=== PATIENT | male | born 1965 ===

== ENCOUNTER 2018-03-04 06:49 | Inpatient (IN) | payer OTHER ==
[2018-03-04] MEDS ORDERED: Amiodarone 150mg/3 ml vial ONE (07:06)
[2018-03-04] MEDS ORDERED: Midazolam 2 MG/2 ML VIAL ONE (07:20)
[2018-03-04] MEDS ORDERED: Sodium Chloride 0.9% 1,000 ML IV ONE ×2 (07:30→09:14)
[2018-03-04] MEDS ORDERED: Midazolam 2 MG/2 ML VIAL IV STA (07:32)
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
[2018-03-04 07:45] LABS: BASO # 0.1 K/uL (0.0-0.2); BASO % 0.7 % (0.0-2.0); EOS # 0.1 K/uL (0.0-0.7); EOS % 1.3 % (0.0-4.0); HEMOGLOBIN 14.2 g/dL (12.0-18.0); LYMPH # 2.5 K/uL (1.0-4.3); LYMPH % 31.8 % (20.0-40.0); MEAN CORPUSCULAR HEMOGLOBIN 27.6 pg (27.0-31.0); MEAN CORPUSCULAR HGB CONC 33.2 g/dL (33.0-37.0); MEAN PLATELET VOLUME 8.1 fL (7.2-11.7); MONO # 0.9 K/uL (0.0-0.8); MONO % 11.8 % (0.0-10.0); NEUT # 4.3 K/uL (1.8-7.0); NEUT % 54.4 % (50.0-75.0); NRBC % 0.1 % (0.0-2.0); RBC 5.14 Mil/uL (4.40-5.90); WHITE BLOOD COUNT 7.9 K/uL (4.8-10.8)
[2018-03-04] MEDS: Heparin25000 units/250ml 1/2NS 25,000 UNITS/250 ML BAG IV STA ×2 (08:13→08:55)
[2018-03-04] MEDS: Heparin25000 units/250ml 1/2NS 25,000 UNITS/250 ML BAG IV PRN ×2 (08:13→08:45)
[2018-03-04] MEDS ORDERED: Dextrose 50% SYRINGE Inj (50 ml) IVP STA (08:24)
[2018-03-04] MEDS ORDERED: Dextrose 5%/0.9% NS 1,000 ML IV ONE (08:24)
[2018-03-04 08:30] LABS: INR 1.1; PROTHROMBIN TIME 11.5 SECONDS (9.7-12.2)
[2018-03-04 08:37] LABS: B-TYPE NATRIURETIC PEPTIDE 405 pg/mL (0-900); CK-MB 3.09 ng/mL (0.0-3.38)
[2018-03-04 08:38] LABS: ALB/GLOB RATIO 1.3 (1.0-2.1); ALBUMIN 4.8 g/dL (3.5-5.0); ALT/SGPT 37 U/L (21-72); AST/SGOT 53 U/L (17-59); BLOOD UREA NITROGEN 13 mg/dL (9-20); CALCIUM 9.4 mg/dl (8.6-10.4); GFR NON-AFRICAN AMERICAN > 60
[2018-03-04] MEDS ORDERED: Heparin25000 units/250ml 1/2NS 25,000 UNITS/250 ML BAG IV SCH (09:00)
[2018-03-04] MEDS ORDERED: Sodium Chloride 0.9% 2,000 ML ONE (09:18)
[2018-03-04 09:31] LABS: SQUAMOUS EPITHIAL < 1 /hpf (0-5); URINE BILIRUBIN NEGATIVE (NEGATIVE); URINE BLOOD NEGATIVE (NEGATIVE); URINE CLARITY Clear (Clear); URINE COLOR Yellow (YELLOW); URINE GLUCOSE (UA) NORMAL (Normal); URINE LEUKOCYTE ESTERASE NEG Leu/uL (Negative); URINE PROTEIN NEGATIVE (NEGATIVE); URINE UROBILINOGEN NORMAL mg/dL (0.2-1.0)
[2018-03-04 09:53] LABS: BARBITURATES, UR NEGATIVE (NEGATIVE); OPIATES, UR NEGATIVE (NEGATIVE); PHENCYCLIDINE, UR NEGATIVE (NEGATIVE)
--- NOTE | 2018-03-04 10:23 | RAD ---
HISTORY: CP COMPARISON: None available. TECHNIQUE: Chest, one view. FINDINGS: LUNGS: Defibrillator pad projects over the left hemithorax precluding adequate evaluation of the underlying parenchyma. No focal consolidation identified. Please note that chest x-ray has limited sensitivity for the detection of pulmonary masses. PLEURA: No significant pleural effusion identified. No definite pneumothorax . CARDIOVASCULAR: Cardiomegaly. No significant atherosclerotic calcification present. OSSEOUS STRUCTURES: Degenerative changes. VISUALIZED UPPER ABDOMEN: Unremarkable. OTHER FINDINGS: None. IMPRESSION: Cardiomegaly. Defibrillator pad projects over the left hemithorax precluding adequate evaluation of the underlying parenchyma. No focal consolidation identified.
[2018-03-04 10:26] LABS: BENZODIAZEPINES, UR POSITIVE (NEGATIVE)
--- NOTE | 2018-03-04 11:00 | CP.PCM.PN ---
Subjective - Date & Time of Evaluation Date of Evaluation: 03/04/18 Time of Evaluation: 10:45 - Subjective Subjective: H&P dictated #[id number] Objective - Vital Signs/Intake and Output Vital Signs (last 24 hours): Temp Pulse Resp BP Pulse Ox 97.5 F L 75 19 104/66 98 03/04/18 10:14 03/04/18 10:20 03/04/18 10:20 03/04/18 10:14 03/04/18 10:20 Intake and Output: 03/04/18 03/04/18 06:59 18:59 Intake Total 43.8 Balance 43.8 - Medications Medications: Current Medications Aspirin (Aspirin Chewable) 81 mg PO DAILY ELIZABETH Amiodarone HCl 900 mg/ (Dextrose) 500 mls @ 33.33 mls/hr IV .Q15H1M ONE; Protocol Stop: 03/04/18 23:00 Last Admin: 03/04/18 08:14 Dose: 33.33 mls/hr Heparin Sodium/Sodium Chloride (Heparin 03856 Units/250ml 1/2 Normal Saline) 25,000 units in 250 mls @ 8.981 mls/hr IV .Q24H PRN; Protocol Last Admin: 03/04/18 08:45 Dose: 10.5 mls/hr - Labs Labs: 03/04/18 07:40 03/04/18 07:40 PT 11.5 SECONDS (9.7-12.2) 03/04/18 07:40 INR 1.1 03/04/18 07:40 APTT 35 SECONDS (21-34) H 03/04/18 07:40
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
[2018-03-04] MEDS: guaiFENesin-Codeine 100-10mg/5ml Syrup (10ml) UD PO PRN (22:19)
[2018-03-04] MEDS ORDERED: Ipratropium 0.02% Inhal Soln (0.5 mg/2.5 ml) UD IH STA (22:59)
[2018-03-04] MEDS ORDERED: Promethazine 6.25 MG/5 ML CUP PO ONE (23:15)
[2018-03-04] MEDS ORDERED: Potassium Chloride 20 mEq/15 ml LIQ UD PO ONE (23:21)
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
[2018-03-05 06:17] LABS: BASO # 0.1 K/uL (0.0-0.2); BASO % 0.7 % (0.0-2.0); EOS # 0.1 K/uL (0.0-0.7); EOS % 0.9 % (0.0-4.0); HEMOGLOBIN 14.2 g/dL (12.0-18.0); LYMPH # 1.6 K/uL (1.0-4.3); LYMPH % 19.9 % (20.0-40.0); MEAN CELL VOLUME 83.1 fL (80.0-94.0); MEAN CORPUSCULAR HEMOGLOBIN 27.8 pg (27.0-31.0); MEAN CORPUSCULAR HGB CONC 33.4 g/dL (33.0-37.0); MEAN PLATELET VOLUME 8.8 fL (7.2-11.7); MONO # 0.6 K/uL (0.0-0.8); MONO % 8.1 % (0.0-10.0); NEUT # 5.6 K/uL (1.8-7.0); NEUT % 70.4 % (50.0-75.0); RBC 5.09 Mil/uL (4.40-5.90); RED CELL DISTRIBUTION WIDTH 14.7 % (11.5-14.5)
[2018-03-05] MEDS: Heparin25000 units/250ml 1/2NS 25,000 UNITS/250 ML BAG IV PRN (06:34)
[2018-03-05 06:35] LABS: LDL CHOLESTEROL 114 mg/dL (0-129)
[2018-03-05 06:36] LABS: ALB/GLOB RATIO 1.3 (1.0-2.1); ALBUMIN 4.5 g/dL (3.5-5.0); ALT/SGPT 46 U/L (21-72); AST/SGOT 43 U/L (17-59); BLOOD UREA NITROGEN 12 mg/dL (9-20); CALCIUM 8.9 mg/dl (8.6-10.4); GFR NON-AFRICAN AMERICAN > 60; HDL CHOLESTEROL 62 mg/dL (30-70)
--- NOTE | 2018-03-05 08:28 | RAD ---
Chest x-ray single frontal view HISTORY: Congestive heart failure. COMPARISON: 03/04/2018 Findings: Prominent diffuse increased interstitial lung markings suggestive for a moderate venous congestion. Patchy consolidative changes in the left mid to lower lung zone. Biapical pleural thickening with upper lobe granulomatous changes. Cardiomegaly. Enlarged ectatic aorta. Degenerative changes in the spine and shoulders. Impression: Prominent diffuse increased interstitial lung markings suggestive for a moderate venous congestion. Patchy consolidative changes in the left mid to lower lung zone. Biapical pleural thickening with upper lobe granulomatous changes. Cardiomegaly. Enlarged ectatic aorta.
--- NOTE | 2018-03-05 08:31 | RAD ---
Chest x-ray single frontal view HISTORY: Congestive heart failure. COMPARISON: 03/04/2018 Findings: Moderate venous congestion. Right hilar prominence. Patchy increased markings at the left lung base. Cardiomegaly. Additional consolidative changes in the medial aspect of the left upper lung zone. Degenerative changes in the spine and shoulders. Impression: Moderate venous congestion. Right hilar prominence. Patchy increased markings at the left lung base. Cardiomegaly. Additional consolidative changes in the medial aspect of the left upper lung zone. Degenerative changes in the spine and shoulders.
--- NOTE | 2018-03-05 09:44 | CP.PCM.PN ---
Subjective - Date & Time of Evaluation Date of Evaluation: 03/05/18 Time of Evaluation: 09:44 - Subjective Subjective: Progress note dictated #[id number] Objective - Vital Signs/Intake and Output Vital Signs (last 24 hours): Temp Pulse Resp BP Pulse Ox 98.4 F 71 17 114/66 98 03/05/18 08:00 03/05/18 08:03 03/05/18 08:03 03/05/18 08:03 03/05/18 08:03 Intake and Output: 03/05/18 03/05/18 06:59 18:59 Intake Total 693.0 54.4 Output Total 2650 Balance -1957.0 54.4 - Medications Medications: Current Medications Amiodarone HCl (Cordarone) 100 mg PO BID [facility] Aspirin (Aspirin Chewable) 81 mg PO DAILY [facility] Last Admin: 03/04/18 11:38 Dose: 81 mg Furosemide (Lasix) 20 mg PO DAILY [facility] Guaifenesin/Codeine Phosphate (Guaifenesin/Codeine) 5 ml PO Q6H PRN PRN Reason: Cough and congestion Last Admin: 03/04/18 22:19 Dose: 5 ml Heparin Sodium/Sodium Chloride (Heparin 36863 Units/250ml 1/2 Normal Saline) 25,000 units in 250 mls @ 8.981 mls/hr IV .Q24H [facility]; Protocol Last Admin: 03/05/18 06:34 Dose: 14 units/kg/hr, 10.478 mls/hr Influenza Virus Vaccine (Flucelvax Quad [id number] Syr) 60 mcg IM .ONCE ONE Stop: 03/06/18 10:01 Losartan Potassium (Cozaar) 25 mg PO DAILY [facility] Pantoprazole Sodium (Protonix Inj) 40 mg IVP DAILY [facility] Rosuvastatin Calcium (Crestor) 10 mg PO HS [facility] - Labs Labs: 03/05/18 06:07 03/05/18 06:07 PT 11.5 SECONDS (9.7-12.2) 03/04/18 07:40 INR 1.1 03/04/18 07:40 APTT 76 SECONDS (21-34) H 03/05/18 06:07
--- NOTE | 2018-03-05 10:19 | CARD ---
APPROVED REPORT Date of service: 03/04/2018 EXAM: Two-dimensional and M-mode echocardiogram with Doppler and color Doppler. INDICATION Dizziness and Vertigo Dyspnea Chest pressure Palpitations 2D DIMENSIONS IVSd0.8 (0.7-1.1cm)Aortic Root (2D)2.7 (2.0-3.7cm) LVDd8.0 (3.9-5.9cm)PWd0.7 (0.7-1.1cm) LA Egcuqi35 (18-58mL)LVDs7.0 (2.5-4.0cm) FS (%) 12.5 %LVEF (%)25.8 (>50%) LVEF (Knutson's)35.12 %IVC0.00 cm M-Mode DIMENSIONS Left Atrium (MM)4.03 (2.5-4.0cm)IVSd0.56 (0.7-1.1cm) Aortic Root3.23 (2.2-3.7cm)LVDd8.05 (4.0-5.6cm) Aortic Cusp Exc.1.56 (1.5-2.0cm)PWd0.80 (0.7-1.1cm) FS (%) 17 %LVDs6.70 (2.0-3.8cm) TAPSE14.01 cmLVEF (%)34 (>50%) Mitral Valve MV E Wtfcbuop437.8cm/sMV A Srgiggkf17.1cm/sE/A ratio2.0 TDI Lateral E' Peak V3.33cm/sMedial E' Peak V4.62cm/sE/Lateral E'31.5 E/Medial E'22.7 Tricuspid Valve TR Peak Bsvqgrwv058wn/sTR Peak Gr.[id number] LEFT VENTRICLE The Left Ventricle is severely dilated. There is normal left ventricular wall thickness. Left ventricle systolic function is severely impaired. The Ejection Fraction is 15-20%. There is normal LV segmental wall motion. The left ventricular diastolic function is normal. No obvious left ventricle thrombus noted on this study. RIGHT VENTRICLE The right ventricle is normal size. There is normal right ventricular wall thickness. Systolic function is severely reduced. ATRIA The left atrium is mildly dilated. The right atrium size is normal. The interatrial septum is intact with no evidence for an atrial septal defect. AORTIC VALVE The aortic valve is normal in structure. No aortic regurgitation is present. There is no aortic valvular stenosis. MITRAL VALVE The mitral valve is normal in structure. There is no evidence of mitral valve prolapse. There is no mitral valve stenosis. Mitral regurgitation is moderate. TRICUSPID VALVE The tricuspid valve is normal in structure. There is mild tricuspid regurgitation. Right ventricular systolic pressure is estimated at less than 30 mmHg. There is no pulmonary hypertension. PULMONIC VALVE The pulmonic valve is not well visualized. There is mild pulmonic valvular regurgitation. GREAT VESSELS The aortic root is normal in size. PERICARDIAL EFFUSION There is no significant pericardial effusion. <Conclusion> Left ventricle systolic function is severely impaired. The Ejection Fraction is 15-20%. No aortic regurgitation is present. Mitral regurgitation is moderate. There is mild tricuspid regurgitation. There is no pulmonary hypertension. There is mild pulmonic valvular regurgitation.
[2018-03-05] MEDS: Pantoprazole 40 mg EC Tab PO SCH (11:05)
[2018-03-05] MEDS: guaiFENesin-Codeine 100-10mg/5ml Syrup (10ml) UD PO PRN (11:07)
--- NOTE | 2018-03-05 12:18 | CP.CCUPN ---
CCU Subjective - Physician Review Events Since Last Encounter (Free Text): 03/05/18 14:46 patient had some SOB this morning, but has improved after diuretic administration. CCU Objective - Vital Signs / Intake & Output Vital Signs (Last 4 hours): Vital Signs Pulse Resp BP Pulse Ox 03/05/18 11:58 98/69 L 03/05/18 11:03 56 L 24 98/69 L 03/05/18 11:00 54 L 24 100 03/05/18 10:03 69 29 H 115/68 96 03/05/18 10:00 74 32 H 98 03/05/18 09:03 75 16 111/64 97 03/05/18 09:00 68 29 H 98 Intake and Output (Last 8hrs): Intake & Output 03/04/18 03/05/18 03/05/18 22:59 06:59 14:59 Intake Total 500.6 367.6 96.4 Output Total 650 2300 Balance -149.4 -1932.4 96.4 Weight 171 lb 1.259 oz 171 lb Intake: Intake, IV Amount 300.6 217.6 96.4 Left Forearm 216.6 133.6 33.4 Right Antecubital 84.0 84.0 63.0 Oral 200 150 Output: Urine 650 2300 Urine, Voided 650 2300 - Physical Exam Head: Positive for: Atraumatic, Normocephalic Pupils: Positive for: PERRL Extroacular Muscles: Positive for: EOMI Conjunctiva: Positive for: Normal Ears: Positive for: Normal Mouth: Positive for: Moist Mucous Membranes Respiratory/Chest: Positive for: Decreased Breath Sounds, Rales Cardiovascular: Positive for: Regular Rate and Rhythm, Normal S1, S2 Abdomen: Positive for: Normal Bowel Sounds. Negative for: Tenderness, Distention Upper Extremity: Positive for: Normal Inspection Lower Extremity: Positive for: Normal Inspection Neurological: Positive for: CN II-XII Intact, Speech Normal Psychiatric: Positive for: Alert, Oriented x 3 - Medications Active Medications: Active Medications Generic Name Dose Route Start Last Admin Trade Name Freq PRN Reason Stop Dose Admin Amiodarone HCl 100 mg 03/05/18 10:00 03/05/18 11:13 Cordarone PO 100 mg BID ELIZABETH Administration Aspirin 81 mg 03/04/18 10:30 03/05/18 11:05 Aspirin Chewable PO 81 mg DAILY ELIZABETH Administration Furosemide 20 mg 03/05/18 10:00 03/05/18 11:58 Lasix PO Not Given DAILY ELIZABETH Guaifenesin/Codeine Phosphate 5 ml 03/04/18 22:12 03/05/18 11:07 Guaifenesin/Codeine PO 5 ml Q6H PRN Administration Cough and congestion Heparin Sodium/Sodium Chloride 25,000 units in 250 mls @ 8.981 mls/hr 03/04/18 09:15 03/05/18 06:34 Heparin 48891 Units/250ml 1/2 Normal Saline IV 14 units/kg/hr .Q24H PRN 10.478 mls/hr Administration Protocol 12 UNITS/KG/HR Influenza Virus Vaccine 60 mcg 03/06/18 10:00 Flucelvax Quad [id number] Syr IM 03/06/18 10:01 .ONCE ONE Losartan Potassium 25 mg 03/05/18 10:00 03/05/18 11:58 Cozaar PO Not Given DAILY ELIZABETH Pantoprazole Sodium 40 mg 03/05/18 10:15 03/05/18 11:05 Protonix Ec Tab PO 40 mg DAILY ELIZABETH Administration Rosuvastatin Calcium 10 mg 03/05/18 22:00 Crestor PO HS ELIZABETH - Patient Studies Lab Studies: Lab Studies 03/05/18 03/05/18 03/05/18 Range/Units 06:07 06:07 06:07 WBC 8.0 (4.8-10.8) K/uL RBC 5.09 (4.40-5.90) Mil/uL Hgb 14.2 (12.0-18.0) g/dL Hct 42.3 (35.0-51.0) % MCV 83.1 (80.0-94.0) fL MCH 27.8 (27.0-31.0) pg MCHC 33.4 (33.0-37.0) g/dL RDW 14.7 H (11.5-14.5) % Plt Count 369 (130-400) K/uL MPV 8.8 (7.2-11.7) fL Neut % (Auto) 70.4 (50.0-75.0) % Lymph % (Auto) 19.9 L (20.0-40.0) % [place] % (Auto) 8.1 (0.0-10.0) % Eos % (Auto) 0.9 (0.0-4.0) % Baso % (Auto) 0.7 (0.0-2.0) % Neut # (Auto) 5.6 (1.8-7.0) K/uL Lymph # (Auto) 1.6 (1.0-4.3) K/uL [place] # (Auto) 0.6 (0.0-0.8) K/uL Eos # (Auto) 0.1 (0.0-0.7) K/uL Baso # (Auto) 0.1 (0.0-0.2) K/uL APTT 76 H (21-34) SECONDS Sodium 134 (132-148) mmol/L Potassium 3.9 (3.6-5.2) mmol/L Chloride 101 (98-107) mmol/L Carbon Dioxide 24 (22-30) mmol/L Anion Gap 13 (10-20) BUN 12 (9-20) mg/dL Creatinine 0.8 (0.8-1.5) mg/dL Est GFR ( Amer) > 60 Est GFR (Non-Af Amer) > 60 Random Glucose 135 H (75-110) mg/dL Calcium 8.9 (8.6-10.4) mg/dl Phosphorus 2.6 (2.5-4.5) mg/dL Magnesium 1.9 (1.6-2.3) mg/dL Total Bilirubin 1.0 (0.2-1.3) mg/dL AST 43 (17-59) U/L ALT 46 (21-72) U/L Alkaline Phosphatase 77 (38-126) U/L Total Creatine Kinase 210 H (55-170) U/L Troponin I (0.00-0.120) ng/mL Total Protein 7.8 (6.3-8.3) g/dL Albumin 4.5 (3.5-5.0) g/dL Globulin 3.3 (2.2-3.9) gm/dL Albumin/Globulin Ratio 1.3 (1.0-2.1) Triglycerides 95 (0-149) mg/dL Cholesterol 177 (0-199) mg/dL LDL Cholesterol Direct 114 (0-129) mg/dL HDL Cholesterol 62 (30-70) mg/dL TSH 3rd Generation 1.13 (0.46-4.68) mIU/L 03/04/18 03/04/18 03/04/18 Range/Units 21:00 19:08 15:05 WBC (4.8-10.8) K/uL RBC (4.40-5.90) Mil/uL Hgb (12.0-18.0) g/dL Hct (35.0-51.0) % MCV (80.0-94.0) fL MCH (27.0-31.0) pg MCHC (33.0-37.0) g/dL RDW (11.5-14.5) % Plt Count (130-400) K/uL MPV (7.2-11.7) fL Neut % (Auto) (50.0-75.0) % Lymph % (Auto) (20.0-40.0) % [place] % (Auto) (0.0-10.0) % Eos % (Auto) (0.0-4.0) % Baso % (Auto) (0.0-2.0) % Neut # (Auto) (1.8-7.0) K/uL Lymph # (Auto) (1.0-4.3) K/uL [place] # (Auto) (0.0-0.8) K/uL Eos # (Auto) (0.0-0.7) K/uL Baso # (Auto) (0.0-0.2) K/uL APTT 79 H D 68 H D (21-34) SECONDS Sodium (132-148) mmol/L Potassium (3.6-5.2) mmol/L Chloride (98-107) mmol/L Carbon Dioxide (22-30) mmol/L Anion Gap (10-20) BUN (9-20) mg/dL Creatinine (0.8-1.5) mg/dL Est GFR ( Amer) Est GFR (Non-Af Amer) Random Glucose (75-110) mg/dL Calcium (8.6-10.4) mg/dl Phosphorus (2.5-4.5) mg/dL Magnesium (1.6-2.3) mg/dL Total Bilirubin (0.2-1.3) mg/dL AST (17-59) U/L ALT (21-72) U/L Alkaline Phosphatase (38-126) U/L Total Creatine Kinase (55-170) U/L Troponin I 0.4950 H* (0.00-0.120) ng/mL Total Protein (6.3-8.3) g/dL Albumin (3.5-5.0) g/dL Globulin (2.2-3.9) gm/dL Albumin/Globulin Ratio (1.0-2.1) Triglycerides (0-149) mg/dL Cholesterol (0-199) mg/dL LDL Cholesterol Direct (0-129) mg/dL HDL Cholesterol (30-70) mg/dL TSH 3rd Generation (0.46-4.68) mIU/L 03/04/18 Range/Units 12:22 WBC (4.8-10.8) K/uL RBC (4.40-5.90) Mil/uL Hgb (12.0-18.0) g/dL Hct (35.0-51.0) % MCV (80.0-94.0) fL MCH (27.0-31.0) pg MCHC (33.0-37.0) g/dL RDW (11.5-14.5) % Plt Count (130-400) K/uL MPV (7.2-11.7) fL Neut % (Auto) (50.0-75.0) % Lymph % (Auto) (20.0-40.0) % [place] % (Auto) (0.0-10.0) % Eos % (Auto) (0.0-4.0) % Baso % (Auto) (0.0-2.0) % Neut # (Auto) (1.8-7.0) K/uL Lymph # (Auto) (1.0-4.3) K/uL [place] # (Auto) (0.0-0.8) K/uL Eos # (Auto) (0.0-0.7) K/uL Baso # (Auto) (0.0-0.2) K/uL APTT (21-34) SECONDS Sodium (132-148) mmol/L Potassium (3.6-5.2) mmol/L Chloride (98-107) mmol/L Carbon Dioxide (22-30) mmol/L Anion Gap (10-20) BUN (9-20) mg/dL Creatinine (0.8-1.5) mg/dL Est GFR ( Amer) Est GFR (Non-Af Amer) Random Glucose (75-110) mg/dL Calcium (8.6-10.4) mg/dl Phosphorus (2.5-4.5) mg/dL Magnesium (1.6-2.3) mg/dL Total Bilirubin (0.2-1.3) mg/dL AST (17-59) U/L ALT (21-72) U/L Alkaline Phosphatase (38-126) U/L Total Creatine Kinase (55-170) U/L Troponin I 0.2050 H* (0.00-0.120) ng/mL Total Protein (6.3-8.3) g/dL Albumin (3.5-5.0) g/dL Globulin (2.2-3.9) gm/dL Albumin/Globulin Ratio (1.0-2.1) Triglycerides (0-149) mg/dL Cholesterol (0-199) mg/dL LDL Cholesterol Direct (0-129) mg/dL HDL Cholesterol (30-70) mg/dL TSH 3rd Generation (0.46-4.68) mIU/L Laboratory Results - last 24 hr 03/04/18 03/04/18 03/04/18 12:22 15:05 19:08 WBC RBC Hgb Hct MCV MCH MCHC RDW Plt Count MPV Neut % (Auto) Lymph % (Auto) [place] % (Auto) Eos % (Auto) Baso % (Auto) Neut # (Auto) Lymph # (Auto) [place] # (Auto) Eos # (Auto) Baso # (Auto) APTT 68 H D Sodium Potassium Chloride Carbon Dioxide Anion Gap BUN Creatinine Est GFR ( Amer) Est GFR (Non-Af Amer) Random Glucose Calcium Phosphorus Magnesium Total Bilirubin AST ALT Alkaline Phosphatase Total Creatine Kinase Troponin I 0.2050 H* 0.4950 H* Total Protein Albumin Globulin Albumin/Globulin Ratio Triglycerides Cholesterol LDL Cholesterol Direct HDL Cholesterol TSH 3rd Generation 03/04/18 03/05/18 03/05/18 21:00 06:07 06:07 WBC 8.0 RBC 5.09 Hgb 14.2 Hct 42.3 MCV 83.1 MCH 27.8 MCHC 33.4 RDW 14.7 H Plt Count 369 MPV 8.8 Neut % (Auto) 70.4 Lymph % (Auto) 19.9 L [place] % (Auto) 8.1 Eos % (Auto) 0.9 Baso % (Auto) 0.7 Neut # (Auto) 5.6 Lymph # (Auto) 1.6 [place] # (Auto) 0.6 Eos # (Auto) 0.1 Baso # (Auto) 0.1 APTT 79 H D Sodium 134 Potassium 3.9 Chloride 101 Carbon Dioxide 24 Anion Gap 13 BUN 12 Creatinine 0.8 Est GFR ( Amer) > 60 Est GFR (Non-Af Amer) > 60 Random Glucose 135 H Calcium 8.9 Phosphorus 2.6 Magnesium 1.9 Total Bilirubin 1.0 AST 43 ALT 46 Alkaline Phosphatase 77 Total Creatine Kinase 210 H Troponin I Total Protein 7.8 Albumin 4.5 Globulin 3.3 Albumin/Globulin Ratio 1.3 Triglycerides 95 Cholesterol 177 LDL Cholesterol Direct 114 HDL Cholesterol 62 TSH 3rd Generation 1.13 03/05/18 06:07 WBC RBC Hgb Hct MCV MCH MCHC RDW Plt Count MPV Neut % (Auto) Lymph % (Auto) [place] % (Auto) Eos % (Auto) Baso % (Auto) Neut # (Auto) Lymph # (Auto) [place] # (Auto) Eos # (Auto) Baso # (Auto) APTT 76 H Sodium Potassium Chloride Carbon Dioxide Anion Gap BUN Creatinine Est GFR ( Amer) Est GFR (Non-Af Amer) Random Glucose Calcium Phosphorus Magnesium Total Bilirubin AST ALT Alkaline Phosphatase Total Creatine Kinase Troponin I Total Protein Albumin Globulin Albumin/Globulin Ratio Triglycerides Cholesterol LDL Cholesterol Direct HDL Cholesterol TSH 3rd Generation Radiology Impressions: Radiology Impressions Chest X-Ray 03/04/18 23:01 Impression: Prominent diffuse increased interstitial lung markings suggestive for a moderate venous congestion. Patchy consolidative changes in the left mid to lower lung zone. Biapical pleural thickening with upper lobe granulomatous changes. Cardiomegaly. Enlarged ectatic aorta. Chest X-Ray 03/04/18 23:18 Impression: Moderate venous congestion. Right hilar prominence. Patchy increased markings at the left lung base. Cardiomegaly. Additional consolidative changes in the medial aspect of the left upper lung zone. Degenerative changes in the spine and shoulders. Critical Care Progress Note - Nutrition Nutrition: Nutrition Category Date Time Status Heart Healthy Diet [DIET] Diets 03/04/18 Dinner Active Assessment/Plan (1) NSTEMI (non-ST elevated myocardial infarction) Assessment and plan: 52 year old male with no significant past medical history p/w Vtach with pulses requiring electrical cardioversion. Neuro: alert and oriented x 3 Pulm: pulmonary edema, from suspected systolic CHF, patient improved after lasix administration. continue po lasix CV: NSTEMI or type 2 strain from sustained Vtach episode, patient was also positive for cocaine, so possible drug induced arrythmia. suspected systolic CHF, echo results pending. Patient has some type of cardiomyopathy with arrythmias. No further episodes of Vtach, now on amiodarone po. metoprolol and RADHA-I. Patient will most likely need AICD placement. Cardiac cath pending for Wednesday. Hem: no acute issues Renal: no acute issues, will monitor urine output. Endo: no acute issues GI: heart healthy diet ID: no acute issues DVT proph - heparin gtt GI proph - protonix turcios for strict I/O's during acute illness Code status - full code Critical Care Time spent 35 minutes Multi-disciplinary rounds were performed with house staff, nursing, speech therapy, respiratory therapy, pharmacy and nutrition with integrated input from the primary team/attending and other consulting services. The documented time is cumulative and includes review of patient data/exams/labs/chart review and examination of the patient on rounds and throughout the day; time is exclusive of any procedures or teaching time. Current Visit: Yes Status: Acute
--- NOTE | 2018-03-05 13:56 | PN ---
DATE: 03/05/2018 SUBJECTIVE: The patient is seen and examined at bedside. No acute overnight events noted. No further arrhythmias noted. The patient denies any headache, dizziness. Denies any chest pain, palpitations. Denies any nausea, vomiting, abdominal pain, diarrhea or constipation. Denies any urinary complaints. All other systems reviewed and were found to be negative. PHYSICAL EXAMINATION: GENERAL: A middle-aged male lying in bed in no acute distress. VITAL SIGNS: Blood pressure 114/66, pulse 82, respirations 71, temperature 98.4 degrees Fahrenheit. O2 saturation 98% on room air. Intake is 1087, output is 2950. HEENT: Pupils equal, round, reacting to light and accommodation. Extraocular muscles intact. No icterus. No pallor. No oral thrush. No pharyngeal congestion. NECK: Supple. No JVD. LUNGS: Bilateral vesicular breath sounds. No wheezing. No rhonchi. CARDIOVASCULAR SYSTEM: S1, S2 present, regular. ABDOMEN: Soft, nontender. Bowel sounds present. No guarding. No rigidity. No rebound tenderness noted. CENTRAL NERVOUS SYSTEM: Alert, awake, oriented x3. No focal deficits noted. EXTREMITIES: No edema. Palpable peripheral pulses noted. MEDICATIONS: Include amiodarone 100 mg p.o. daily, aspirin 81 mg daily, Lasix 20 mg daily, guaifenesin as needed, heparin drip at 8.9 mL an hour, Cozaar 25 mg daily, Protonix 40 mg daily, Crestor 10 mg p.o. at h.s. LABORATORY DATA: The labs done from this morning WBC 8, hemoglobin 14.2, hematocrit 42.6, platelets 369, sodium 134, potassium 3.9, chloride 101, bicarbonate 24, BUN 12, creatinine 0.8, glucose 135, calcium 8.9, phosphorus 2.6, magnesium 1.9, total bilirubin 1, AST 43, ALT 46, alkaline phosphatase 77, CPK is 210, troponin is 0.2050 and 0.4950. Triglycerides 95, cholesterol 177, LDL 114, HDL 62, TSH 1.13. DIAGNOSTIC DATA: Chest x-ray, moderate venous congestion. Echocardiogram shows ejection fraction 15 to 20%. Left ventricular function severely impaired. Mitral regurgitation is noted. ASSESSMENT AND PLAN: A middle-aged male with remote history of cardiac surgery and cardiac catheterization as noted for ventricular tachycardia status post electrical cardioversion converted to normal sinus rhythm, cocaine and cannabinoid abuse, and cardiomyopathy. The patient remains in sinus rhythm. Chest x-ray consistent with congestive heart failure; Lasix and losartan are re-added. Amiodarone changed to p.o. Continue with heparin drip as per Cardiology. EP consult and Cardiology consult appreciated for possible cardiac cath on Wednesday and will follow up with digital analyst regarding ICD and further intervention. Micheline Franco MD
--- NOTE | 2018-03-05 19:10 | CP.PCM.PN ---
Subjective - Date & Time of Evaluation Date of Evaluation: 03/05/18 Time of Evaluation: 19:10 - Subjective Subjective: Patient seen and evaluated Denies chest pain and dyspnea Hx Pneumococcal Vaccination: No Review Of Systems Constitutional: Negative for: Fever, Chills Cardiovascular: Positive for: Chest Pain, Palpitations, Light Headedness Respiratory: Positive for: Shortness of Breath. Negative for: Cough Gastrointestinal: Negative for: Nausea, Vomiting, Abdominal Pain, Diarrhea Neurological: Positive for: Dizziness. Negative for: Weakness, Numbness, Headache Physical Exam - Physical Exam Appears: Well, Non-toxic, In Acute Distress (in moderate distress) Skin: Warm, Dry, Diaphoretic Oral Mucosa: Moist Chest: Other (left chest sugical scars) Cardiovascular: Rhythm Regular (tachycardic ) Respiratory: Normal Breath Sounds, No Rales, No Rhonchi, No Wheezing Gastrointestinal/Abdominal: Normal Exam, Bowel Sounds, Soft, No Tenderness Extremity: Normal ROM, No Pedal Edema, No Calf Tenderness Pulses: Left Dorsalis Pedis: Normal, Right Dorsalis Pedis: Normal Neurological/Psych: Oriented x3 Objective - Vital Signs/Intake and Output Vital Signs (last 24 hours): Temp Pulse Resp BP Pulse Ox 98.1 F 75 32 H 126/89 98 03/05/18 16:00 03/05/18 19:02 03/05/18 19:02 03/05/18 19:03 03/05/18 19:02 Intake and Output: 03/05/18 03/06/18 18:59 06:59 Intake Total 669.9 Output Total 600 Balance 69.9 - Medications Medications: Current Medications Amiodarone HCl (Cordarone) 100 mg PO BID [facility] Last Admin: 03/05/18 18:30 Dose: 100 mg Aspirin (Aspirin Chewable) 81 mg PO DAILY [facility] Last Admin: 03/05/18 11:05 Dose: 81 mg Furosemide (Lasix) 20 mg PO DAILY [facility] Last Admin: 03/05/18 11:58 Dose: Not Given Guaifenesin/Codeine Phosphate (Guaifenesin/Codeine) 5 ml PO Q6H PRN PRN Reason: Cough and congestion Last Admin: 03/05/18 11:07 Dose: 5 ml Heparin Sodium/Sodium Chloride (Heparin 49549 Units/250ml 1/2 Normal Saline) 25,000 units in 250 mls @ 8.981 mls/hr IV .Q24H PRN; Protocol Last Admin: 03/05/18 06:34 Dose: 14 units/kg/hr, 10.478 mls/hr Influenza Virus Vaccine (Flucelvax Quad [id number] Syr) 60 mcg IM .ONCE ONE Stop: 03/06/18 10:01 Losartan Potassium (Cozaar) 25 mg PO DAILY [facility] Last Admin: 03/05/18 11:58 Dose: Not Given Pantoprazole Sodium (Protonix Ec Tab) 40 mg PO DAILY [facility] Last Admin: 03/05/18 11:05 Dose: 40 mg Rosuvastatin Calcium (Crestor) 10 mg PO HS ELIZABETH - Labs Labs: 03/05/18 06:07 03/05/18 06:07 PT 11.5 SECONDS (9.7-12.2) 03/04/18 07:40 INR 1.1 03/04/18 07:40 APTT 76 SECONDS (21-34) H 03/05/18 06:07 Assessment and Plan - Assessment and Plan (Free Text) Assessment: S/P V Tach Non STEMI Isch CMP dilated with EF of 20% Cocaine positive Continue ASA, Heparin, Losartan, Statins Cath Wednesday AICD evaluation
[2018-03-06] MEDS: Heparin25000 units/250ml 1/2NS 25,000 UNITS/250 ML BAG IV PRN (05:24)
[2018-03-06 05:56] LABS: BASO # 0.1 K/uL (0.0-0.2); BASO % 1.2 % (0.0-2.0); EOS # 0.2 K/uL (0.0-0.7); EOS % 3.5 % (0.0-4.0); HEMOGLOBIN 14.2 g/dL (12.0-18.0); LYMPH % 33.4 % (20.0-40.0); MEAN CELL VOLUME 82.8 fL (80.0-94.0); MEAN CORPUSCULAR HEMOGLOBIN 27.1 pg (27.0-31.0); MEAN CORPUSCULAR HGB CONC 32.7 g/dL (33.0-37.0); MEAN PLATELET VOLUME 8.5 fL (7.2-11.7); MONO # 0.7 K/uL (0.0-0.8); MONO % 12.1 % (0.0-10.0); NEUT # 3.1 K/uL (1.8-7.0); NEUT % 49.8 % (50.0-75.0); RBC 5.23 Mil/uL (4.40-5.90); RED CELL DISTRIBUTION WIDTH 14.8 % (11.5-14.5); WHITE BLOOD COUNT 6.1 K/uL (4.8-10.8)
[2018-03-06 06:16] LABS: ALB/GLOB RATIO 1.2 (1.0-2.1); ALT/SGPT 32 U/L (21-72); AST/SGOT 25 U/L (17-59); BLOOD UREA NITROGEN 19 mg/dL (9-20); CALCIUM 8.8 mg/dl (8.6-10.4); GFR NON-AFRICAN AMERICAN > 60
[2018-03-06] MEDS: Pantoprazole 40 mg EC Tab PO SCH (09:51)
[2018-03-06] MEDS ORDERED: Influenza Vaccine 60 mcg/0.5 mL SYR (4YR UP) IM ONE (10:00)
--- NOTE | 2018-03-06 13:20 | CP.PCM.PN ---
Subjective - Date & Time of Evaluation Date of Evaluation: 03/06/18 Time of Evaluation: 13:20 - Subjective Subjective: Progress note dictated #[id number] Objective - Vital Signs/Intake and Output Vital Signs (last 24 hours): Temp Pulse Resp BP Pulse Ox 98.5 F 73 26 H 109/71 94 L 03/06/18 04:00 03/06/18 07:03 03/06/18 07:03 03/06/18 09:51 03/06/18 07:03 Intake and Output: 03/06/18 03/06/18 06:59 18:59 Intake Total 865.5 10.5 Output Total 1100 Balance -234.5 10.5 - Medications Medications: Current Medications Amiodarone HCl (Cordarone) 100 mg PO BID [facility] Last Admin: 03/06/18 09:51 Dose: 100 mg Aspirin (Aspirin Chewable) 81 mg PO DAILY [facility] Last Admin: 03/06/18 09:51 Dose: 81 mg Furosemide (Lasix) 20 mg PO DAILY [facility] Last Admin: 03/06/18 09:51 Dose: 20 mg Guaifenesin/Codeine Phosphate (Guaifenesin/Codeine) 5 ml PO Q6H PRN PRN Reason: Cough and congestion Last Admin: 03/05/18 11:07 Dose: 5 ml Heparin Sodium/Sodium Chloride (Heparin 61662 Units/250ml 1/2 Normal Saline) 25,000 units in 250 mls @ 8.981 mls/hr IV .Q24H PRN; Protocol Last Admin: 03/06/18 05:24 Dose: 14 units/kg/hr, 10.478 mls/hr Losartan Potassium (Cozaar) 25 mg PO DAILY [facility] Last Admin: 03/06/18 09:51 Dose: 25 mg Pantoprazole Sodium (Protonix Ec Tab) 40 mg PO DAILY [facility] Last Admin: 03/06/18 09:51 Dose: 40 mg Rosuvastatin Calcium (Crestor) 10 mg PO HS [facility] Last Admin: 03/05/18 21:27 Dose: 10 mg - Labs Labs: 03/06/18 05:50 03/06/18 05:50 PT 11.5 SECONDS (9.7-12.2) 03/04/18 07:40 INR 1.1 03/04/18 07:40 APTT 59 SECONDS (21-34) H D 03/06/18 05:50
--- NOTE | 2018-03-06 13:39 | RAD ---
Chest x-ray single frontal view HISTORY: Congestive heart failure. Comparison: 03/04/2018 Findings: Mild venous congestion. Right hilar prominence. Punctate nodular density at the right lung apex. Cardiomegaly. Degenerative changes spine and shoulders. Impression: Mild venous congestion. Right hilar prominence. Punctate nodular density at the right lung apex. Cardiomegaly.
--- NOTE | 2018-03-06 14:27 | CP.CCUPN ---
CCU Subjective - Physician Review Events Since Last Encounter (Free Text): 03/06/18 14:22 no complaints. CCU Objective - Vital Signs / Intake & Output Intake and Output (Last 8hrs): Intake & Output 03/05/18 03/06/18 03/06/18 22:59 06:59 14:59 Intake Total 884.0 534.0 10.5 Output Total 800 900 Balance 84.0 -366.0 10.5 Weight 168 lb 11.84 oz Intake: IV 250 Intake, IV Amount 84.0 84.0 10.5 Right Antecubital 84.0 84.0 10.5 Oral 800 200 Output: Urine 800 900 Urine, Voided 800 900 Other: # Bowel Movements 1 - Physical Exam Head: Positive for: Atraumatic, Normocephalic Pupils: Positive for: PERRL Extroacular Muscles: Positive for: EOMI Conjunctiva: Positive for: Normal Ears: Positive for: Normal Mouth: Positive for: Moist Mucous Membranes Respiratory/Chest: Positive for: Decreased Breath Sounds, Rales Cardiovascular: Positive for: Regular Rate and Rhythm, Normal S1, S2 Abdomen: Positive for: Normal Bowel Sounds. Negative for: Tenderness, Distention Upper Extremity: Positive for: Normal Inspection Lower Extremity: Positive for: Normal Inspection Neurological: Positive for: CN II-XII Intact, Speech Normal Psychiatric: Positive for: Alert, Oriented x 3 - Medications Active Medications: Active Medications Generic Name Dose Route Start Last Admin Trade Name Freq PRN Reason Stop Dose Admin Amiodarone HCl 100 mg 03/05/18 10:00 03/06/18 09:51 Cordarone PO 100 mg BID ELIZABETH Administration Aspirin 81 mg 03/04/18 10:30 03/06/18 09:51 Aspirin Chewable PO 81 mg DAILY ELIZABETH Administration Furosemide 20 mg 03/05/18 10:00 03/06/18 09:51 Lasix PO 20 mg DAILY ELIZABETH Administration Guaifenesin/Codeine Phosphate 5 ml 03/04/18 22:12 03/05/18 11:07 Guaifenesin/Codeine PO 5 ml Q6H PRN Administration Cough and congestion Heparin Sodium/Sodium Chloride 25,000 units in 250 mls @ 8.981 mls/hr 03/04/18 09:15 03/06/18 05:24 Heparin 39169 Units/250ml 1/2 Normal Saline IV 14 units/kg/hr .Q24H PRN 10.478 mls/hr Administration Protocol 12 UNITS/KG/HR Losartan Potassium 25 mg 03/05/18 10:00 03/06/18 09:51 Cozaar PO 25 mg DAILY ELIZABETH Administration Pantoprazole Sodium 40 mg 03/05/18 10:15 03/06/18 09:51 Protonix Ec Tab PO 40 mg DAILY ELIZABETH Administration Rosuvastatin Calcium 10 mg 03/05/18 22:00 03/05/18 21:27 Crestor PO 10 mg HS ELIZABETH Administration - Patient Studies Lab Studies: Microbiology Studies 03/04/18 11:43 MRSA Culture (Admit) - Final Nose MRSA NOT DETECTED Lab Studies 03/06/18 03/06/18 03/06/18 Range/Units 05:50 05:50 05:50 WBC 6.1 (4.8-10.8) K/uL RBC 5.23 (4.40-5.90) Mil/uL Hgb 14.2 (12.0-18.0) g/dL Hct 43.3 (35.0-51.0) % MCV 82.8 (80.0-94.0) fL MCH 27.1 (27.0-31.0) pg MCHC 32.7 L (33.0-37.0) g/dL RDW 14.8 H (11.5-14.5) % Plt Count 347 (130-400) K/uL MPV 8.5 (7.2-11.7) fL Neut % (Auto) 49.8 L (50.0-75.0) % Lymph % (Auto) 33.4 (20.0-40.0) % Baldwin % (Auto) 12.1 H (0.0-10.0) % Eos % (Auto) 3.5 (0.0-4.0) % Baso % (Auto) 1.2 (0.0-2.0) % Neut # (Auto) 3.1 (1.8-7.0) K/uL Lymph # (Auto) 2.0 (1.0-4.3) K/uL Baldwin # (Auto) 0.7 (0.0-0.8) K/uL Eos # (Auto) 0.2 (0.0-0.7) K/uL Baso # (Auto) 0.1 (0.0-0.2) K/uL APTT 59 H D (21-34) SECONDS Sodium 135 (132-148) mmol/L Potassium 3.9 (3.6-5.2) mmol/L Chloride 103 (98-107) mmol/L Carbon Dioxide 24 (22-30) mmol/L Anion Gap 12 (10-20) BUN 19 (9-20) mg/dL Creatinine 0.8 (0.8-1.5) mg/dL Est GFR ( Amer) > 60 Est GFR (Non-Af Amer) > 60 Random Glucose 110 (75-110) mg/dL Hemoglobin A1c (4.2-6.5) % Calcium 8.8 (8.6-10.4) mg/dl Phosphorus 3.1 (2.5-4.5) mg/dL Magnesium 1.7 (1.6-2.3) mg/dL Total Bilirubin 0.6 (0.2-1.3) mg/dL AST 25 (17-59) U/L ALT 32 (21-72) U/L Alkaline Phosphatase 69 (38-126) U/L Total Protein 7.3 (6.3-8.3) g/dL Albumin 4.0 (3.5-5.0) g/dL Globulin 3.2 (2.2-3.9) gm/dL Albumin/Globulin Ratio 1.2 (1.0-2.1) 03/05/18 Range/Units 06:07 WBC (4.8-10.8) K/uL RBC (4.40-5.90) Mil/uL Hgb (12.0-18.0) g/dL Hct (35.0-51.0) % MCV (80.0-94.0) fL MCH (27.0-31.0) pg MCHC (33.0-37.0) g/dL RDW (11.5-14.5) % Plt Count (130-400) K/uL MPV (7.2-11.7) fL Neut % (Auto) (50.0-75.0) % Lymph % (Auto) (20.0-40.0) % Baldwin % (Auto) (0.0-10.0) % Eos % (Auto) (0.0-4.0) % Baso % (Auto) (0.0-2.0) % Neut # (Auto) (1.8-7.0) K/uL Lymph # (Auto) (1.0-4.3) K/uL Baldwin # (Auto) (0.0-0.8) K/uL Eos # (Auto) (0.0-0.7) K/uL Baso # (Auto) (0.0-0.2) K/uL APTT (21-34) SECONDS Sodium (132-148) mmol/L Potassium (3.6-5.2) mmol/L Chloride (98-107) mmol/L Carbon Dioxide (22-30) mmol/L Anion Gap (10-20) BUN (9-20) mg/dL Creatinine (0.8-1.5) mg/dL Est GFR ( Amer) Est GFR (Non-Af Amer) Random Glucose (75-110) mg/dL Hemoglobin A1c 5.8 (4.2-6.5) % Calcium (8.6-10.4) mg/dl Phosphorus (2.5-4.5) mg/dL Magnesium (1.6-2.3) mg/dL Total Bilirubin (0.2-1.3) mg/dL AST (17-59) U/L ALT (21-72) U/L Alkaline Phosphatase (38-126) U/L Total Protein (6.3-8.3) g/dL Albumin (3.5-5.0) g/dL Globulin (2.2-3.9) gm/dL Albumin/Globulin Ratio (1.0-2.1) Laboratory Results - last 24 hr 03/05/18 03/06/18 03/06/18 06:07 05:50 05:50 WBC 6.1 RBC 5.23 Hgb 14.2 Hct 43.3 MCV 82.8 MCH 27.1 MCHC 32.7 L RDW 14.8 H Plt Count 347 MPV 8.5 Neut % (Auto) 49.8 L Lymph % (Auto) 33.4 Baldwin % (Auto) 12.1 H Eos % (Auto) 3.5 Baso % (Auto) 1.2 Neut # (Auto) 3.1 Lymph # (Auto) 2.0 Baldwin # (Auto) 0.7 Eos # (Auto) 0.2 Baso # (Auto) 0.1 APTT 59 H D Sodium Potassium Chloride Carbon Dioxide Anion Gap BUN Creatinine Est GFR ( Amer) Est GFR (Non-Af Amer) Random Glucose Hemoglobin A1c 5.8 Calcium Phosphorus Magnesium Total Bilirubin AST ALT Alkaline Phosphatase Total Protein Albumin Globulin Albumin/Globulin Ratio 03/06/18 05:50 WBC RBC Hgb Hct MCV MCH MCHC RDW Plt Count MPV Neut % (Auto) Lymph % (Auto) Baldwin % (Auto) Eos % (Auto) Baso % (Auto) Neut # (Auto) Lymph # (Auto) Baldwin # (Auto) Eos # (Auto) Baso # (Auto) APTT Sodium 135 Potassium 3.9 Chloride 103 Carbon Dioxide 24 Anion Gap 12 BUN 19 Creatinine 0.8 Est GFR ( Amer) > 60 Est GFR (Non-Af Amer) > 60 Random Glucose 110 Hemoglobin A1c Calcium 8.8 Phosphorus 3.1 Magnesium 1.7 Total Bilirubin 0.6 AST 25 ALT 32 Alkaline Phosphatase 69 Total Protein 7.3 Albumin 4.0 Globulin 3.2 Albumin/Globulin Ratio 1.2 Radiology Impressions: Radiology Impressions Chest X-Ray 03/06/18 09:37 Impression: Mild venous congestion. Right hilar prominence. Punctate nodular density at the right lung apex. Cardiomegaly. Review of Systems - Review of Systems All systems: reviewed and no additional remarkable complaints except (no complaints) - Cardiovascular Cardiovascular: absent: Chest Pain Critical Care Progress Note - Nutrition Nutrition: Nutrition Category Date Time Status Heart Healthy Diet [DIET] Diets 03/04/18 Dinner Active Assessment/Plan (1) NSTEMI (non-ST elevated myocardial infarction) Assessment and plan: 52 year old male with no significant past medical history p/w Vtach with pulses requiring electrical cardioversion. Neuro: alert and oriented x 3 Pulm: pulmonary edema, from suspected systolic CHF, patient improved after lasix administration. continue po lasix CV: NSTEMI or type 2 strain from sustained Vtach episode, patient was also positive for cocaine, so possible drug induced arrythmia. heparin gtt for possible NSTEMI. Suspected systolic CHF, echo results pending. Patient has some type of cardiomyopathy with arrythmias. No further episodes of Vtach, now on amiodarone po. metoprolol and RADHA-I. Patient will most likely need AICD placement. Cardiac cath pending for Wednesday. Hem: no acute issues Renal: no acute issues, will monitor urine output. Endo: no acute issues GI: heart healthy diet ID: no acute issues DVT proph - heparin gtt GI proph - protonix turcios for strict I/O's during acute illness Code status - full code Critical Care Time spent 35 minutes Multi-disciplinary rounds were performed with house staff, nursing, speech therapy, respiratory therapy, pharmacy and nutrition with integrated input from the primary team/attending and other consulting services. The documented time is cumulative and includes review of patient data/exams/labs/chart review and examination of the patient on rounds and throughout the day; time is exclusive of any procedures or teaching time. Current Visit: Yes Status: Acute
[2018-03-06] MEDS: Docusate-Senna 50 mg-8.6 mg Tab PO SCH (17:53)
--- NOTE | 2018-03-06 19:21 | PN ---
DATE: 03/06/2018 SUBJECTIVE: The patient is seen and examined at bedside. The patient offers no new complaints. No acute overnight events noted. PHYSICAL EXAMINATION: GENERAL: A middle-aged male, lying in bed, denies acute distress. VITAL SIGNS: Blood pressure 109/71, pulse 73, respirations 20, temperature 98.3 degrees Fahrenheit, and O2 saturations 99% on room air. Intake is 1535 mL, output is 1700 mL. HEENT: Pupils equal, round, and reacting to light and accommodation. Extraocular muscles intact. No icterus. No pallor. No oral thrush. No pharyngeal congestion. NECK: Supple. No JVD. LUNGS: Bilateral vesicular breath sounds. No wheezing. No rhonchi. CARDIOVASCULAR SYSTEM: S1 and S2 present, regular. ABDOMEN: Soft and nontender. Bowel sounds present. No guarding. No rigidity. No rebound tenderness noted. CENTRAL NERVOUS SYSTEM: Alert, awake, and oriented x 3. No focal deficits noted. EXTREMITIES: No edema, palpable peripheral pulses. LABORATORY DATA: From this morning; WBC 6.1, hemoglobin 14.2, hematocrit 43.3, and platelets 347. PTT 59. Sodium 135, potassium 3.9, chloride 103, bicarb 24, BUN 19, creatinine 0.8, glucose 110, hemoglobin A1c 5.8%, calcium 8.8, phosphorus 3.1, and magnesium 1.7. LFTs within normal limits. DIAGNOSTIC DATA: Chest x-ray done this morning shows some mild venous congestion, right hilar prominence, punctate nodular density at the right lung apex, cardiomegaly. MEDICATIONS: Include amiodarone 100 mg p.o. b.i.d., aspirin 81 mg daily, Lasix 20 mg daily, heparin drip at 8.9 mL per hour, Cozaar 25 mg daily, Protonix 40 mg daily, and Crestor 10 mg p.o. at bedtime. ASSESSMENT AND PLAN: A middle-aged male with history of cardiac surgery, admitted for ventricular tachycardia, converted to normal sinus rhythm after electrical cardioversion, on amiodarone and heparin drip, drug abuse of cocaine and cannabinoids, ischemic cardiomyopathy with GFR of less than 20% and mild venous congestion. Cardiology followup appreciated. Continue with current medication, for possible catheterization in the a.m. Follow up with Cardiology for further cardiac care. Micheline Franco MD [facility] # [id number]
--- NOTE | 2018-03-06 21:17 | CP.PCM.PN ---
Subjective - Date & Time of Evaluation Date of Evaluation: 03/06/18 Time of Evaluation: 21:16 - Subjective Subjective: Patient seen and evaluated NonSTMI S/P V Tach Severe acute systolic CHF For Cardiac cath tomorrow Objective - Vital Signs/Intake and Output Vital Signs (last 24 hours): Temp Pulse Resp BP Pulse Ox 98.5 F 69 28 H 119/71 97 03/06/18 20:00 03/06/18 20:05 03/06/18 20:05 03/06/18 20:05 03/06/18 19:03 Intake and Output: 03/06/18 03/07/18 18:59 06:59 Intake Total 1166.0 10.5 Output Total 1500 0 Balance -334.0 10.5 - Medications Medications: Current Medications Amiodarone HCl (Cordarone) 100 mg PO BID [facility] Last Admin: 03/06/18 17:54 Dose: 100 mg Aspirin (Aspirin Chewable) 81 mg PO DAILY [facility] Last Admin: 03/06/18 09:51 Dose: 81 mg Furosemide (Lasix) 20 mg PO DAILY [facility] Last Admin: 03/06/18 09:51 Dose: 20 mg Guaifenesin/Codeine Phosphate (Guaifenesin/Codeine) 5 ml PO Q6H PRN PRN Reason: Cough and congestion Last Admin: 03/05/18 11:07 Dose: 5 ml Heparin Sodium/Sodium Chloride (Heparin 95122 Units/250ml 1/2 Normal Saline) 25,000 units in 250 mls @ 8.981 mls/hr IV .Q24H PRN; Protocol Last Admin: 03/06/18 05:24 Dose: 14 units/kg/hr, 10.478 mls/hr Losartan Potassium (Cozaar) 25 mg PO DAILY [facility] Last Admin: 03/06/18 09:51 Dose: 25 mg Pantoprazole Sodium (Protonix Ec Tab) 40 mg PO DAILY [facility] Last Admin: 03/06/18 09:51 Dose: 40 mg Rosuvastatin Calcium (Crestor) 10 mg PO HS [facility] Last Admin: 03/05/18 21:27 Dose: 10 mg Senna/Docusate Sodium (Senokot S 50 Mg-8.6 Mg) 2 tab PO BID [facility] Last Admin: 03/06/18 17:53 Dose: 2 tab - Labs Labs: 03/06/18 05:50 03/06/18 05:50 PT 11.5 SECONDS (9.7-12.2) 03/04/18 07:40 INR 1.1 03/04/18 07:40 APTT 59 SECONDS (21-34) H D 03/06/18 05:50
[2018-03-07 05:44] LABS: HEMOGLOBIN 14.2 g/dL (12.0-18.0); MEAN CELL VOLUME 83.6 fL (80.0-94.0); MEAN CORPUSCULAR HEMOGLOBIN 27.5 pg (27.0-31.0); MEAN CORPUSCULAR HGB CONC 32.9 g/dL (33.0-37.0); MEAN PLATELET VOLUME 8.2 fL (7.2-11.7); RBC 5.17 Mil/uL (4.40-5.90); RED CELL DISTRIBUTION WIDTH 14.7 % (11.5-14.5); WHITE BLOOD COUNT 6.5 K/uL (4.8-10.8)
[2018-03-07 05:56] LABS: BLOOD UREA NITROGEN 19 mg/dL (9-20); CALCIUM 9.1 mg/dl (8.6-10.4); GFR NON-AFRICAN AMERICAN > 60
[2018-03-07 06:04] LABS: PROTHROMBIN TIME 11.1 SECONDS (9.7-12.2)
[2018-03-07] MEDS ORDERED: Iodixanol 320 MG/ML 100 ML BOTTLE IV ONE ×2 (07:52→08:23)
[2018-03-07] MEDS ORDERED: Verapamil 2 ML ONE (07:52)
[2018-03-07] MEDS ORDERED: Nitroglycerin 50mg in D5W 50 MG/250 ML BOTTLE IV ONE (07:53)
[2018-03-07] MEDS ORDERED: Midazolam 2 MG/2 ML VIAL ONE (07:54)
--- NOTE | 2018-03-07 08:48 | CP.PCM.PN ---
Subjective - Date & Time of Evaluation Date of Evaluation: 03/07/18 Time of Evaluation: 08:45 - Subjective Subjective: Patient s/p Cardiac cath 1. L Main: Patent 2. LAD: Mid long 99% stenosis 3. L Cx/OMs: patent 4. RCA: Dominant and patent 5. LV: EF of 15%, Dilated Icshemic CMP A/P: 1. Dilated Ischemic CMP with EF of 15% 2. S/P V Tach Transfer [place] [facility] [place] Impella assisted PCI AICD eval for V Tach and Low EF Resume Heparin drip from 12 noon today Objective - Vital Signs/Intake and Output Vital Signs (last 24 hours): Temp Pulse Resp BP Pulse Ox 98.1 F 70 18 105/61 97 03/07/18 04:00 03/07/18 06:03 03/07/18 06:03 03/07/18 06:03 03/07/18 06:03 Intake and Output: 03/07/18 03/07/18 06:59 18:59 Intake Total 423.0 Output Total 1 Balance 422.0 - Medications Medications: Current Medications Amiodarone HCl (Cordarone) 100 mg PO BID [facility] Last Admin: 03/06/18 17:54 Dose: 100 mg Aspirin (Aspirin Chewable) 81 mg PO DAILY [facility] Last Admin: 03/06/18 09:51 Dose: 81 mg Clopidogrel Bisulfate (Plavix) 75 mg PO DAILY [facility] Furosemide (Lasix) 20 mg PO DAILY [facility] Last Admin: 03/06/18 09:51 Dose: 20 mg Guaifenesin/Codeine Phosphate (Guaifenesin/Codeine) 5 ml PO Q6H PRN PRN Reason: Cough and congestion Last Admin: 03/05/18 11:07 Dose: 5 ml Losartan Potassium (Cozaar) 25 mg PO DAILY [facility] Last Admin: 03/06/18 09:51 Dose: 25 mg Pantoprazole Sodium (Protonix Ec Tab) 40 mg PO DAILY [facility] Last Admin: 03/06/18 09:51 Dose: 40 mg Rosuvastatin Calcium (Crestor) 10 mg PO HS [facility] Last Admin: 03/06/18 23:27 Dose: 10 mg Senna/Docusate Sodium (Senokot S 50 Mg-8.6 Mg) 2 tab PO BID [facility] Last Admin: 03/06/18 17:53 Dose: 2 tab - Labs Labs: 03/07/18 05:41 03/07/18 05:41 PT 11.1 SECONDS (9.7-12.2) 03/07/18 05:41 INR 1.0 03/07/18 05:41 APTT 59 SECONDS (21-34) H D 03/06/18 05:50
[2018-03-07] MEDS: Docusate-Senna 50 mg-8.6 mg Tab PO SCH (09:52)
--- NOTE | 2018-03-07 11:54 | CP.PCM.PN ---
Subjective - Date & Time of Evaluation Date of Evaluation: 03/07/18 Time of Evaluation: 11:54 - Subjective Subjective: Discharge summary dictated #[id number] Objective - Vital Signs/Intake and Output Vital Signs (last 24 hours): Temp Pulse Resp BP Pulse Ox 98.5 F 63 24 108/71 99 03/07/18 09:00 03/07/18 10:27 03/07/18 10:27 03/07/18 10:27 03/07/18 10:13 Intake and Output: 03/07/18 03/07/18 06:59 18:59 Intake Total 423.0 200 Output Total 1 Balance 422.0 200 - Medications Medications: Current Medications Amiodarone HCl (Cordarone) 100 mg PO BID [facility] Last Admin: 03/07/18 09:51 Dose: 100 mg Aspirin (Aspirin Chewable) 81 mg PO DAILY [facility] Last Admin: 03/07/18 09:47 Dose: 81 mg Clopidogrel Bisulfate (Plavix) 75 mg PO DAILY [facility] Last Admin: 03/07/18 09:47 Dose: 75 mg Famotidine (Pepcid) 20 mg PO DAILY [facility] Last Admin: 03/07/18 09:47 Dose: 20 mg Furosemide (Lasix) 20 mg PO DAILY [facility] Last Admin: 03/07/18 09:47 Dose: 20 mg Guaifenesin/Codeine Phosphate (Guaifenesin/Codeine) 5 ml PO Q6H PRN PRN Reason: Cough and congestion Last Admin: 03/05/18 11:07 Dose: 5 ml Heparin Sodium/Sodium Chloride (Heparin 27635 Units/250ml 1/2 Normal Saline) 25,000 units in 250 mls @ 9.737 mls/hr IV .Q24H PRN; Protocol PRN Reason: PROTOCOL Losartan Potassium (Cozaar) 25 mg PO DAILY [facility] Last Admin: 03/07/18 09:47 Dose: 25 mg Rosuvastatin Calcium (Crestor) 10 mg PO HS [facility] Last Admin: 03/06/18 23:27 Dose: 10 mg Senna/Docusate Sodium (Senokot S 50 Mg-8.6 Mg) 2 tab PO BID [facility] Last Admin: 03/07/18 09:52 Dose: 2 tab - Labs Labs: 03/07/18 05:41 03/07/18 05:41 PT 11.1 SECONDS (9.7-12.2) 03/07/18 05:41 INR 1.0 03/07/18 05:41 APTT 59 SECONDS (21-34) H D 03/06/18 05:50
[2018-03-07] MEDS ORDERED: Heparin25000 units/250ml 1/2NS 25,000 UNITS/250 ML BAG IV PRN ×2 (12:00)
--- NOTE | 2018-03-07 12:19 | CARD ---
APPROVED REPORT Date of service: 03/04/2018 EKG Measurement Heart [id number] <Conclusion> Sinus rhythm with fusion complexes Possible Left atrial enlargement Left axis deviation Left ventricular hypertrophy with QRS widening and repolarization abnormality Possible Lateral infarct, age undetermined Abnormal ECG
--- NOTE | 2018-03-07 12:20 | CARD ---
APPROVED REPORT Date of service: 03/04/2018 EKG Measurement Heart [id number] <Conclusion> Wide QRS tachycardia Nonspecific intraventricular block Lateral infarct, age undetermined Abnormal ECG
--- NOTE | 2018-03-07 12:52 | CP.CCUPN ---
CCU Subjective - Physician Review Subjective (Free Text): PGY-1 ICU progress note for Dr Garcia service Patient is seen and examined at bedside this am. Reports no acute events overnight. Patient recently came back from Cardiac cath. Patient has no complaints at this time. Denies fever, chills, chest pain, nausea, vomiting, abdominal pain, diarrhea or constipation. Critical Care Time Spent (in minutes): 35 CCU Objective - Vital Signs / Intake & Output Vital Signs (Last 4 hours): Vital Signs Temp Pulse Resp BP Pulse Ox 03/07/18 12:00 70 9 L 98 03/07/18 11:57 73 12 79/45 L 03/07/18 11:42 64 21 89/47 L 03/07/18 11:33 63 16 89/39 L 03/07/18 11:27 62 19 89/39 L 03/07/18 11:12 66 23 98/39 L 03/07/18 11:03 67 19 91/38 L 03/07/18 11:00 68 19 03/07/18 10:57 72 17 91/38 L 03/07/18 10:42 67 23 101/78 03/07/18 10:33 68 22 108/71 03/07/18 10:27 63 24 108/71 03/07/18 10:13 68 24 107/64 99 03/07/18 10:03 68 24 107/64 03/07/18 10:00 67 28 H 100 03/07/18 09:58 71 28 H 115/70 100 03/07/18 09:47 120/71 03/07/18 09:43 65 17 120/71 03/07/18 09:27 59 L 22 125/83 100 03/07/18 09:13 74 22 120/82 03/07/18 09:00 98.5 F 79 22 03/07/18 08:57 97.7 F 65 24 111/66 97 Intake and Output (Last 8hrs): Intake & Output 03/06/18 03/07/18 03/07/18 22:59 06:59 14:59 Intake Total 664.0 261.0 400 Output Total 700 1 300 Balance -36.0 260.0 100 Weight 165 lb 2.02 oz Intake: Intake, IV Amount 84.0 21.0 0 Right Antecubital 84.0 21.0 0 Oral 580 240 400 Output: Urine 700 1 300 Urine, Voided 700 1 300 Emesis 0 Other: # Bowel Movements 0 1 - Physical Exam Head: Positive for: Atraumatic, Normocephalic Pupils: Positive for: PERRL Extroacular Muscles: Positive for: EOMI Conjunctiva: Positive for: Normal Ears: Positive for: Normal Mouth: Positive for: Moist Mucous Membranes Respiratory/Chest: Positive for: Clear to Auscultation Cardiovascular: Positive for: Regular Rate and Rhythm, Normal S1, S2 Abdomen: Positive for: Normal Bowel Sounds. Negative for: Tenderness, Distention Upper Extremity: Positive for: Normal Inspection Lower Extremity: Positive for: Normal Inspection. Negative for: Edema Neurological: Positive for: GCS=15, CN II-XII Intact, Speech Normal Skin: Positive for: Warm, Normal Color Psychiatric: Positive for: Alert, Oriented x 3 - Medications Active Medications: Active Medications Generic Name Dose Route Start Last Admin Trade Name Freq PRN Reason Stop Dose Admin Amiodarone HCl 100 mg 03/05/18 10:00 03/07/18 09:51 Cordarone PO 100 mg BID ELIZABETH Administration Aspirin 81 mg 03/04/18 10:30 03/07/18 09:47 Aspirin Chewable PO 81 mg DAILY ELIZABETH Administration Clopidogrel Bisulfate 75 mg 03/07/18 10:00 03/07/18 09:47 Plavix PO 75 mg DAILY ELIZABETH Administration Famotidine 20 mg 03/07/18 10:00 03/07/18 09:47 Pepcid PO 20 mg DAILY ELIZABETH Administration Furosemide 20 mg 03/05/18 10:00 03/07/18 09:47 Lasix PO 20 mg DAILY ELIZABETH Administration Guaifenesin/Codeine Phosphate 5 ml 03/04/18 22:12 03/05/18 11:07 Guaifenesin/Codeine PO 5 ml Q6H PRN Administration Cough and congestion Heparin Sodium/Sodium Chloride 25,000 units in 250 mls @ 9.737 mls/hr 03/07/18 12:00 03/07/18 12:13 Heparin 46629 Units/250ml 1/2 Normal Saline IV 13 units/kg/hr .Q24H PRN 9.737 mls/hr PROTOCOL Administration Protocol 13 UNITS/KG/HR Losartan Potassium 25 mg 03/05/18 10:00 03/07/18 09:47 Cozaar PO 25 mg DAILY EL[facility]ABETH Administration Rosuvastatin Calcium 10 mg 03/05/18 22:00 03/06/18 23:27 Crestor PO 10 mg HS ELIZABETH Administration Senna/Docusate Sodium 2 tab 03/06/18 18:00 03/07/18 09:52 Senokot S 50 Mg-8.6 Mg PO 2 tab BID [facility]ETH Administration - Patient Studies Lab Studies: Lab Studies 03/07/18 03/07/18 03/07/18 Range/Units 05:41 05:41 05:41 WBC 6.5 (4.8-10.8) K/uL RBC 5.17 (4.40-5.90) Mil/uL Hgb 14.2 (12.0-18.0) g/dL Hct 43.2 (35.0-51.0) % MCV 83.6 (80.0-94.0) fL MCH 27.5 (27.0-31.0) pg MCHC 32.9 L (33.0-37.0) g/dL RDW 14.7 H (11.5-14.5) % Plt Count 365 (130-400) K/uL MPV 8.2 (7.2-11.7) fL PT 11.1 (9.7-12.2) SECONDS INR 1.0 Sodium 136 (132-148) mmol/L Potassium 3.9 (3.6-5.2) mmol/L Chloride 102 (98-107) mmol/L Carbon Dioxide 26 (22-30) mmol/L Anion Gap 12 (10-20) BUN 19 (9-20) mg/dL Creatinine 1.0 (0.8-1.5) mg/dL Est GFR ( Amer) > 60 Est GFR (Non-Af Amer) > 60 Random Glucose 116 H (75-110) mg/dL Calcium 9.1 (8.6-10.4) mg/dl Laboratory Results - last 24 hr 03/07/18 03/07/18 03/07/18 05:41 05:41 05:41 WBC 6.5 RBC 5.17 Hgb 14.2 Hct 43.2 MCV 83.6 MCH 27.5 MCHC 32.9 L RDW 14.7 H Plt Count 365 MPV 8.2 PT 11.1 INR 1.0 Sodium 136 Potassium 3.9 Chloride 102 Carbon Dioxide 26 Anion Gap 12 BUN 19 Creatinine 1.0 Est GFR ( Amer) > 60 Est GFR (Non-Af Amer) > 60 Random Glucose 116 H Calcium 9.1 Radiology Impressions: Radiology Impressions Chest X-Ray 03/06/18 09:37 Impression: Mild venous congestion. Right hilar prominence. Punctate nodular density at the right lung apex. Cardiomegaly. Critical Care Progress Note - Nutrition Nutrition: Nutrition Category Date Time Status Heart Healthy Diet [DIET] Diets 03/07/18 Breakfast Active Assessment/Plan - Assessment and Plan (Free Text) Plan: Patient is a 50 year old male with no pmhx that came to ED for chest palpitations and tigthness on 03/04 was found to be in Vtach, given adenosine and cardizem, electrical cardioverted, on heparin and amiodarone drip, transfered to ICU for further monitoring, cath done by Dr Gentile shows LAD mid long 99% stenosis with EF of 15%, patient to be transferred to [facility] for impella assisted PCI, and AICD eval for Vtach and low EF, heparin drip to resume today at noon. Neuro AAOx3 UDS at ED - cocaine (+), cabbanoids (+), benzodiazepines (+) no acute issues Cardio s/p Vtach, NSTEMI adenoside / cardizem/ in ED - failed chem cardioversion electrical Cardioverted in ED, successful Troponin x [address] Gentile - cardio consult - LAD mid long 99% stenosis with EF of 15%, RCA, L Cx/OMS patent Patient [place] [facility] [place] and AICD eval Heparin drip - resumed at 12:00 Continue Statin, Amiodarone, Cozaar,, Plavix, ASA, lasix Pulm O2 via NC GI resume HHD diet Protonix Nephro No issues at this time Endo no issues at this time PPX DVT: heparin drip, SCDs PPX: protonix Dispo: patient to be transferred today 03/[address] [facility] [place] Impella [place] and AICD eval Plan discussed with Dr Radha Lackey, PGY -1 - Date & Time Date: 03/07/18 Time: 12:58
[2018-03-07 14:16] VITALS: TEMP 97.7
[2018-03-07] MEDS ORDERED: Influenza Vaccine 60 mcg/0.5 mL SYR (4YR UP) IM ONE (15:53)
[2018-03-07 16:34] VITALS: BP 106/74
[2018-03-07 17:02] VITALS: PULSE 66; RESP 23
[2018-03-07 17:23] VITALS: O2SAT 98
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
--- NOTE | 2018-03-13 22:38 | CARDCATH ---
PROCEDURE DATE: 03/07/2018 PROCEDURES: 1. Left heart catheterization. 2. Coronary angiogram. REFERRING PHYSICIAN: Micheline Franco MD PERFORMING PHYSICIAN: Nando Gentile MD CLINICAL INDICATIONS: 1. Status post cardiac arrest. 2. Ischemic cardiomyopathy. 3. Hypertension. 4. Hyperlipidemia. DESCRIPTION OF PROCEDURE: After informed consent, the patient was prepped and draped in the usual sterile fashion. A 2% lidocaine was given in the right wrist for local anesthesia. Using micropuncture technique, 6-Tanzanian sheath was introduced into right radial artery. A JR4 diagnostic catheter inserted into the left ventricle across the aortic valve. LV end-diastolic pressure measured. Contrast injected and LV angiogram was done. The catheter was pulled back across the aortic valve. The gradient across the aortic valve was measured. Then, the same catheter engaged into right coronary artery. Contrast injected and right coronary angiogram was done. Then, the catheter was exchanged to 6-[place] catheter. [place] catheter was engaged into left main coronary artery. Contrast injected and left coronary angiogram was done. The patient tolerated the procedure very well. Postprocedure, Terumo radial band applied to right wrist with excellent hemostasis. Radiological supervision and radiological interpretation of the coronary imaging was done. FINDINGS: 1. Left main coronary artery is patent. 2. Proximal LAD is patent. Mid LAD has 100% total occlusion, however, distal LAD is filled by bridge collaterals. Diagonal branches are patent. 3. Left circumflex and obtuse marginal branches are patent. 4. Right coronary artery is dominant and patent. 5. Dilated ischemic cardiomyopathy with EF of approximately 20%. EDP is 22. No gradient across the aortic valve. IMPRESSION: 1. Chronic total occlusion of the mid LAD as described above. Distal LAD is filled by bridge collaterals. 2. Dilated ischemic cardiomyopathy with ejection fraction of 20%. Severe global hypokinesis. EDP is 21. No gradient across the aortic valve. PLAN: The patient is with single vessel coronary artery disease and status post cardiac arrest. The patient will be transferred to cardiothoracic surgical hospital for Impella-assisted RIVETER HELPER of the LAD. Recommend either LifeVest or ICD for secondary prevention of the cardiac arrest. Nando Gentile MD
== END 2018-03-07 17:20 | disposition short-term general hospital (02) | DRG 121 ==
LOC: SUPCPDRO 06:49 → C.ER 06:49 → C.9I 09:20
PROVIDERS: ADMIT Internal Medicine; ATTEND Internal Medicine
PROC: 4A023N7 Measurement of Cardiac Sampling and Pressure, Left Heart, Percutaneous Approach (ICD-10-PCS; principal; 2018-03-04)
PROC: B2151ZZ Fluoroscopy of Left Heart using Low Osmolar Contrast (ICD-10-PCS; 2018-03-04)
PROC: B2111ZZ Fluoroscopy of Multiple Coronary Arteries using Low Osmolar Contrast (ICD-10-PCS; 2018-03-04)
PROC: 5A2204Z Restoration of Cardiac Rhythm, Single (ICD-10-PCS; 2018-03-04)
DX: I47.2 Ventricular tachycardia (principal); I21.4 Non-ST elevation (NSTEMI) myocardial infarction; I50.21 Acute systolic (congestive) heart failure; I42.0 Dilated cardiomyopathy; F14.10 Cocaine abuse, uncomplicated; I25.10 Atherosclerotic heart disease of native coronary artery without angina pectoris; I25.5 Ischemic cardiomyopathy; F12.90 Cannabis use, unspecified, uncomplicated; K21.9 Gastro-esophageal reflux disease without esophagitis; Z82.49 Family history of ischemic heart disease and other diseases of the circulatory system; Z83.3 Family history of diabetes mellitus; Z87.442 Personal history of urinary calculi; Z87.891 Personal history of nicotine dependence

== ENCOUNTER 2018-04-29 04:10 | Inpatient (IN) | payer OTHER ==
[2018-04-29 04:18] VITALS: BMI 27.4
[2018-04-29 04:47] LABS: BASO % 0.9 % (0.0-2.0); EOS # 0.3 K/uL (0.0-0.7); EOS % 5.2 % (0.0-4.0); HEMOGLOBIN 11.2 g/dL (12.0-18.0); LYMPH # 1.4 K/uL (1.0-4.3); LYMPH % 27.4 % (20.0-40.0); MEAN CELL VOLUME 79.5 fL (80.0-94.0); MEAN CORPUSCULAR HEMOGLOBIN 25.9 pg (27.0-31.0); MEAN CORPUSCULAR HGB CONC 32.5 g/dL (33.0-37.0); MEAN PLATELET VOLUME 7.8 fL (7.2-11.7); MONO # 0.6 K/uL (0.0-0.8); MONO % 11.4 % (0.0-10.0); NEUT # 2.8 K/uL (1.8-7.0); NEUT % 55.1 % (50.0-75.0); NRBC % 0.4 % (0.0-2.0); RBC 4.32 Mil/uL (4.40-5.90); RED CELL DISTRIBUTION WIDTH 15.8 % (11.5-14.5)
[2018-04-29 05:00] LABS: ALB/GLOB RATIO 1.2 (1.0-2.1); ALT/SGPT 24 U/L (21-72); AST/SGOT 29 U/L (17-59); BLOOD UREA NITROGEN 13 mg/dL (9-20); CALCIUM 9.2 mg/dl (8.6-10.4); GFR NON-AFRICAN AMERICAN > 60
[2018-04-29 05:10] LABS: B-TYPE NATRIURETIC PEPTIDE 1440 pg/mL (0-900); CK-MB 1.07 ng/mL (0.0-3.38)
[2018-04-29 05:13] LABS: INR 1.1; PROTHROMBIN TIME 12.2 SECONDS (9.7-12.2)
--- NOTE | 2018-04-29 05:49 | C.PDOC ---
History Of Present Illness Patient presents to ED c/o SOB that woke him up out of sleep approx 1 hour [employer]GRAM DIRECT[employer]. He reports SOB worsens with ambulation. Patient denies chest pain, palpitations, cough, fever, abdominal pain, nausea/vomiting/diarrhea, leg edema. PMHx: CABG, CAD, ventricular tachycardia, ischemic cardiomyopathy EF15% <Juana Pérez - Last Filed: 04/29/18 06:58> endorsed pending cta results and admission. ct aneg for pe/dissection accepted dr love. IMPRESSION: No demonstrated pulmonary embolism or arterial dissection. Moderate left pleural effusion. Passive atelectatic airspace disease on the left upper and lower lobes. Mild right pleural effusion. Passive atelectatic airspace disease of the right lower lobe. Mild central pulmonary venous congestion. Recent CABG. Anterior mediastinal effusion, benign expected. Post surgical finding. Mildly enlarged mediastinal lymph nodes, probably benign and reactive the largest measuring 1.3 cm. Mild diffuse spondylosis. Mild cardiomegaly. <Oneal Ji - Last Filed: 04/29/18 07:38> History Per: Patient History/Exam Limitations: no limitations Onset/Duration Of Symptoms: Hrs Current Symptoms Are (Timing): Still Present Current Respiratory Medications: See Home Med List Severity: Moderate <Juana Pérez - Last Filed: 04/29/18 06:58> <Oneal Ji - Last Filed: 04/29/18 07:38> Time Seen by Provider: 04/29/18 04:12 Chief Complaint (Nursing): Shortness Of Breath Past Medical History Reviewed: Historical Data, Nursing Documentation, Vital Signs Vital Signs: Last Vital Signs Temp 99.4 F 04/29/18 04:20 Pulse 87 04/29/18 04:20 Resp 26 H 04/29/18 04:35 BP 141/99 H 04/29/18 04:20 Pulse Ox 96 04/29/18 04:35 - Medical History PMH: CAD, Kidney Stones Other PMH: ventrivcular tachycardia, ischemic CMP, CAD Surgical History: CABG - [facility] Procedures FLUOROSCOPY OF LEFT HEART USING LOW OSMOLAR CONTRAST (03/04/18) FLUOROSCOPY OF MULT COR ART USING L OSM CONTRAST (03/04/18) MEASURE OF CARDIAC SAMPL & PRESSURE, L HEART, PERC APPROACH (03/04/18) SIKHISM OF CARDIAC RHYTHM, SINGLE (03/04/18) Family History: States: No Known Family Hx - Social History Hx Alcohol Use: Yes Hx Substance Use: Yes - Immunization History Hx Tetanus Toxoid Vaccination: No Hx Influenza Vaccination: No Hx Pneumococcal Vaccination: No <Juana Pérez - Last Filed: 04/29/18 06:58> Vital Signs: Last Vital Signs Temp 99.4 F 04/29/18 04:20 Pulse 74 04/29/18 07:02 Resp 20 04/29/18 07:02 BP 113/75 04/29/18 07:02 Pulse Ox 96 04/29/18 07:02 - [facility] Procedures FLUOROSCOPY OF LEFT HEART USING LOW OSMOLAR CONTRAST (03/04/18) FLUOROSCOPY OF MULT COR ART USING L OSM CONTRAST (03/04/18) MEASURE OF CARDIAC SAMPL & PRESSURE, L HEART, PERC APPROACH (03/04/18) SIKHISM OF CARDIAC RHYTHM, SINGLE (03/04/18) <Oneal Ji - Last Filed: 04/29/18 07:38> Review Of Systems Constitutional: Negative for: Fever, Chills Cardiovascular: Negative for: Chest Pain, Palpitations Respiratory: Positive for: Shortness of Breath, SOB with Excertion. Negative for: Cough, Wheezing Gastrointestinal: Negative for: Nausea, Vomiting, Abdominal Pain, Diarrhea Skin: Negative for: Rash Neurological: Negative for: Weakness, Numbness, Headache, Dizziness <Juana Pérez - Last Filed: 04/29/18 06:58> Physical Exam - Physical Exam Appears: Well, Non-toxic, In Acute Distress (anxious appearing, speaking in full sentences) Skin: Normal Color, Warm, Dry Eye(s): bilateral: Normal Inspection Oral Mucosa: Moist Chest: Other (sternotomy scar) Cardiovascular: Rhythm Regular Respiratory: No Accessory Muscle Use, Rales (faint at bases, L>R), No Rhonchi, No Wheezing Gastrointestinal/Abdominal: Normal Exam, Bowel Sounds, Soft, No Tenderness Extremity: Pedal Edema (trace pitting edema B/L LEs), No Calf Tenderness Pulses: Left Dorsalis Pedis: Normal, Right Dorsalis Pedis: Normal Neurological/Psych: Oriented x3 <Juana Pérez - Last Filed: 04/29/18 06:58> ED Course And Treatment - Laboratory Results Result Diagrams: 04/29/18 04:38 04/29/18 04:38 Lab Results: PT 12.2 SECONDS (9.7-12.2) 04/29/18 04:38 INR 1.1 04/29/18 04:38 APTT 33 SECONDS (21-34) 04/29/18 04:38 D-Dimer, Quantitative 330 ng/mlDDU (0-243) H 04/29/18 04:38 Troponin I < 0.0120 ng/mL (0.00-0.120) 04/29/18 04:38 NT-Pro-B Natriuret Pep 1440 pg/mL (0-900) H 04/29/18 04:38 Total Bilirubin 0.4 mg/dL (0.2-1.3) 04/29/18 04:38 AST 29 U/L (17-59) 04/29/18 04:38 ALT 24 U/L (21-72) 04/29/18 04:38 Alkaline Phosphatase 73 U/L (38-126) 04/29/18 04:38 Total Protein 7.3 g/dL (6.3-8.3) 04/29/18 04:38 Albumin 4.0 g/dL (3.5-5.0) 04/29/18 04:38 Globulin 3.4 gm/dL (2.2-3.9) 04/29/18 04:38 Albumin/Globulin Ratio 1.2 (1.0-2.1) 04/29/18 04:38 ECG: Interpreted By Me, Viewed By Me (sinus rhythm 86 bpm, left axis deviation, PVCs, no acute ST changes - unchanged from prior EKG 03/04/18) ECG Interpretation: No Acute Changes O2 Sat by Pulse Oximetry: 96 (RA) Pulse Ox Interpretation: Normal - Radiology CXR: Interpreted by Me, Viewed By Me (cardiomegaly, left sided effusion) Progress Note: Blood work, EKG, CXR ordered and reviewed. Patient has recent CABG 03/2018 at [facility] [place]. D-dimer elevated - CTA chest ordered. <Juana Pérez - Last Filed: 04/29/18 06:58> - Laboratory Results Result Diagrams: 04/29/18 04:38 04/29/18 04:38 Lab Results: PT 12.2 SECONDS (9.7-12.2) 04/29/18 04:38 INR 1.1 04/29/18 04:38 APTT 33 SECONDS (21-34) 04/29/18 04:38 D-Dimer, Quantitative 330 ng/mlDDU (0-243) H 04/29/18 04:38 Troponin I < 0.0120 ng/mL (0.00-0.120) 04/29/18 04:38 NT-Pro-B Natriuret Pep 1440 pg/mL (0-900) H 04/29/18 04:38 Total Bilirubin 0.4 mg/dL (0.2-1.3) 04/29/18 04:38 AST 29 U/L (17-59) 04/29/18 04:38 ALT 24 U/L (21-72) 04/29/18 04:38 Alkaline Phosphatase 73 U/L (38-126) 04/29/18 04:38 Total Protein 7.3 g/dL (6.3-8.3) 04/29/18 04:38 Albumin 4.0 g/dL (3.5-5.0) 04/29/18 04:38 Globulin 3.4 gm/dL (2.2-3.9) 04/29/18 04:38 Albumin/Globulin Ratio 1.2 (1.0-2.1) 04/29/18 04:38 Urine Color Yellow (YELLOW) 04/29/18 05:54 Urine Clarity Clear (Clear) 04/29/18 05:54 Urine pH 5.0 (5.0-8.0) 04/29/18 05:54 Ur Specific [place] 1.018 (1.003-1.030) 04/29/18 05:54 Urine Protein Negative mg/dL (NEGATIVE) 04/29/18 05:54 Urine Glucose (UA) Normal mg/dL (Normal) 04/29/18 05:54 Urine Ketones Negative mg/dL (NEGATIVE) 04/29/18 05:54 Urine Blood Negative (NEGATIVE) 04/29/18 05:54 Urine Nitrate Negative (NEGATIVE) 04/29/18 05:54 Urine Bilirubin Negative (NEGATIVE) 04/29/18 05:54 Urine Urobilinogen 2.0 mg/dL (0.2-1.0) 04/29/18 05:54 Ur Leukocyte Esterase Neg [place]/uL (Negative) 04/29/18 05:54 Urine WBC (Auto) < 1 /hpf (0-5) 04/29/18 05:54 Urine RBC (Auto) 1 /hpf (0-3) 04/29/18 05:54 Ur Squamous Epith Cells < 1 /hpf (0-5) 04/29/18 05:54 <Oneal Ji - Last Filed: 04/29/18 07:38> Disposition - Disposition Disposition Time: 07:00 <Juana Pérez - Last Filed: 04/29/18 06:58> <Oneal Ji - Last Filed: 04/29/18 07:38> - Disposition Disposition: HOSPITALIZED Condition: FAIR - Clinical Impression Clinical Impression: Dyspnea, Pleural effusion, CHF (congestive heart failure) Physician Patient Turnover Patient Signed Over To: Oneal Ji Handoff Comments: pending CTA chest <Juana Pérez - Last Filed: 04/29/18 06:58>
[2018-04-29 06:00] LABS: SQUAMOUS EPITHIAL < 1 /hpf (0-5); URINE BILIRUBIN NEGATIVE (NEGATIVE); URINE BLOOD NEGATIVE (NEGATIVE); URINE CLARITY Clear (Clear); URINE COLOR Yellow (YELLOW); URINE GLUCOSE (UA) NORMAL (Normal); URINE LEUKOCYTE ESTERASE NEG Leu/uL (Negative); URINE PROTEIN NEGATIVE (NEGATIVE)
[2018-04-29] MEDS ORDERED: Iodixanol 320 MG/ML 100 ML BOTTLE IV ONE (06:08)
[2018-04-29 06:14] LABS: BARBITURATES, UR NEGATIVE (NEGATIVE); BENZODIAZEPINES, UR NEGATIVE (NEGATIVE); OPIATES, UR NEGATIVE (NEGATIVE); PHENCYCLIDINE, UR NEGATIVE (NEGATIVE)
--- NOTE | 2018-04-29 09:14 | CT ---
Date of service: 04/29/2018 PROCEDURE: CT Chest with contrast (Pulmonary Angiogram) HISTORY: SOB, ELEVATED DDIMER COMPARISON: None available. TECHNIQUE: Axial computed tomography images were obtained of the chest in the pulmonary arterial phase of enhancement. Coronal and sagittal reformatted images were created and reviewed. Intravenous contrast dose: Radiation dose: Total exam DLP = 464.01 mGy-cm. This CT exam was performed using one or more of the following dose reduction techniques: Automated exposure control, adjustment of the mA and/or kV according to patient size, and/or use of iterative reconstruction technique. FINDINGS: PULMONARY ARTERIES: Unremarkable. No pulmonary embolism. AORTA: No acute findings. No thoracic aortic aneurysm. No aortic atherosclerotic calcification or mural plaque present. LUNGS: Compressive atelectasis at the left base. PLEURAL SPACES: Large partially loculated left pleural effusion in treating into the left major fissure. Small right pleural effusion. HEART: Unremarkable. No cardiomegaly. No significant pericardial effusion. LYMPH NODES: Mild mediastinal lymphadenopathy. BONES, CHEST WALL: Unremarkable. No fracture or destructive lesion OTHER FINDINGS: Status post median sternotomy. IMPRESSION: Large partially loculated left pleural effusion in treating into the left major fissure. Small right pleural effusion.Compressive atelectasis at the left base. No pulmonary embolus.
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
--- NOTE | 2018-04-29 10:57 | RAD ---
Date of service: 04/29/2018 PROCEDURE: CHEST RADIOGRAPH, 1 VIEW HISTORY: SOB COMPARISON: 03/06/2018. FINDINGS: LUNGS: The right lung is well inflated. There is right basilar atelectasis. PLEURA: Moderate left pleural effusion. No large right pleural effusion. No pneumothorax. CARDIOVASCULAR: Persistent severe cardiomegaly. Status post CABG. No aortic atherosclerotic calcifications present. OSSEOUS STRUCTURES: Within normal limits for the patient's age. VISUALIZED UPPER ABDOMEN: Normal. OTHER FINDINGS: None. IMPRESSION: Severe cardiomegaly and moderate left pleural effusion.
[2018-04-29] MEDS: Potassium Chloride 10 mEq ER Tab PO SCH (11:00)
[2018-04-29] MEDS: Pantoprazole 40 mg EC Tab PO SCH (11:00)
[2018-04-29 13:27] LABS: CK-MB 0.79 ng/mL (0.0-3.38)
[2018-04-29 20:23] LABS: CK-MB 0.75 ng/mL (0.0-3.38)
[2018-04-29 23:40] VITALS: RESP 20
[2018-04-30 06:37] LABS: BASO # 0.1 K/uL (0.0-0.2); BASO % 1.1 % (0.0-2.0); EOS # 0.4 K/uL (0.0-0.7); EOS % 6.3 % (0.0-4.0); HEMOGLOBIN 11.4 g/dL (12.0-18.0); LYMPH # 1.4 K/uL (1.0-4.3); LYMPH % 24.3 % (20.0-40.0); MEAN CELL VOLUME 79.1 fL (80.0-94.0); MEAN CORPUSCULAR HEMOGLOBIN 26.1 pg (27.0-31.0); MEAN PLATELET VOLUME 7.8 fL (7.2-11.7); MONO # 0.7 K/uL (0.0-0.8); MONO % 12.2 % (0.0-10.0); NEUT # 3.1 K/uL (1.8-7.0); NEUT % 56.1 % (50.0-75.0); RBC 4.38 Mil/uL (4.40-5.90); RED CELL DISTRIBUTION WIDTH 16.1 % (11.5-14.5); WHITE BLOOD COUNT 5.6 K/uL (4.8-10.8)
[2018-04-30 06:49] LABS: ALB/GLOB RATIO 1.1 (1.0-2.1); ALBUMIN 3.5 g/dL (3.5-5.0); ALT/SGPT 24 U/L (21-72); AST/SGOT 16 U/L (17-59); BLOOD UREA NITROGEN 14 mg/dL (9-20); GFR NON-AFRICAN AMERICAN > 60
[2018-04-30] MEDS: Pantoprazole 40 mg EC Tab PO SCH (09:32)
[2018-04-30] MEDS: Potassium Chloride 10 mEq ER Tab PO SCH (09:32)
[2018-04-30] MEDS ORDERED: Pneumococcal 23-Valent Vaccine IM ONE (10:00)
[2018-04-30] MEDS ORDERED: Influenza Vaccine 60 mcg/0.5 mL SYR (4YR UP) IM ONE (10:00)
--- NOTE | 2018-04-30 12:29 | CP.PCM.PN ---
Subjective - Date & Time of Evaluation Date of Evaluation: 04/30/18 Time of Evaluation: 12:29 - Subjective Subjective: Medicine Progress Note - Dr Hamm's service Objective - Vital Signs/Intake and Output Vital Signs (last 24 hours): Temp Pulse Resp BP Pulse Ox 98.5 F 67 20 112/78 96 04/30/18 09:13 04/30/18 11:28 04/30/18 09:13 04/30/18 09:32 04/30/18 09:13 - Medications Medications: Current Medications Amiodarone HCl (Cordarone) 200 mg PO BID [facility] Last Admin: 04/30/18 09:32 Dose: 200 mg Apixaban (Eliquis) 2.5 mg PO BID [facility] Last Admin: 04/30/18 09:32 Dose: 2.5 mg Aspirin (Aspirin Chewable) 81 mg PO DAILY [facility] Last Admin: 04/30/18 09:32 Dose: 81 mg Carvedilol (Coreg) 3.125 mg PO BID [facility] Last Admin: 04/30/18 09:32 Dose: 3.125 mg Furosemide (Lasix) 20 mg PO DAILY [facility] Last Admin: 04/30/18 09:32 Dose: 20 mg Pantoprazole Sodium (Protonix Ec Tab) 40 mg PO DAILY [facility] Last Admin: 04/30/18 09:32 Dose: 40 mg Potassium Chloride (Klor-Con 10) 10 meq PO DAILY [facility] Last Admin: 04/30/18 09:32 Dose: 10 meq Rosuvastatin Calcium (Crestor) 20 mg PO HS [facility] Last Admin: 04/29/18 21:26 Dose: 20 mg - Labs Labs: 04/30/18 06:26 04/30/18 06:26 PT 12.2 SECONDS (9.7-12.2) 04/29/18 04:38 INR 1.1 04/29/18 04:38 APTT 33 SECONDS (21-34) 04/29/18 04:38
--- NOTE | 2018-04-30 15:56 | CP.PCM.DIS ---
Provider - Provider Date of Admission: 04/29/18 07:26 Attending physician: Kevin Hamm Jr, MD Consults: 04/29/18 09:38 Cardiology Consult Routine Comment: Consulting Provider: Nando Gentile Consulting Physician: Nando Gentile Reason for Consult: SOB; 1 month s/p CABG 04/30/18 15:49 Pulmonology Consult Routine Comment: Consulting Provider: Isma Moore Consulting Physician: Isma Moore Reason for Consult: Pleural effusion Time Spent in preparation of Discharge (in minutes): 31 Hospital Course - Lab Results Lab Results: Most Recent Lab Values WBC 5.6 K/uL (4.8-10.8) 04/30/18 06:26 RBC 4.38 Mil/uL (4.40-5.90) L 04/30/18 06:26 Hgb 11.4 g/dL (12.0-18.0) L 04/30/18 06:26 Hct 34.6 % (35.0-51.0) L 04/30/18 06:26 MCV 79.1 fL (80.0-94.0) L 04/30/18 06:26 MCH 26.1 pg (27.0-31.0) L 04/30/18 06:26 MCHC 33.0 g/dL (33.0-37.0) 04/30/18 06:26 RDW 16.1 % (11.5-14.5) H 04/30/18 06:26 Plt Count 313 K/uL (130-400) 04/30/18 06:26 MPV 7.8 fL (7.2-11.7) 04/30/18 06:26 Neut % (Auto) 56.1 % (50.0-75.0) 04/30/18 06:26 Lymph % (Auto) 24.3 % (20.0-40.0) 04/30/18 06:26 [place] % (Auto) 12.2 % (0.0-10.0) H 04/30/18 06:26 Eos % (Auto) 6.3 % (0.0-4.0) H 04/30/18 06:26 Baso % (Auto) 1.1 % (0.0-2.0) 04/30/18 06:26 Neut # (Auto) 3.1 K/uL (1.8-7.0) 04/30/18 06:26 Lymph # (Auto) 1.4 K/uL (1.0-4.3) 04/30/18 06:26 [place] # (Auto) 0.7 K/uL (0.0-0.8) 04/30/18 06:26 Eos # (Auto) 0.4 K/uL (0.0-0.7) 04/30/18 06:26 Baso # (Auto) 0.1 K/uL (0.0-0.2) 04/30/18 06:26 PT 12.2 SECONDS (9.7-12.2) 04/29/18 04:38 INR 1.1 04/29/18 04:38 APTT 33 SECONDS (21-34) 04/29/18 04:38 D-Dimer, Quantitative 330 ng/mlDDU (0-243) H 04/29/18 04:38 Sodium 138 mmol/L (132-148) 04/30/18 06:26 Potassium 3.7 mmol/L (3.6-5.2) 04/30/18 06:26 Chloride 106 mmol/L (98-107) 04/30/18 06:26 Carbon Dioxide 25 mmol/L (22-30) 04/30/18 06:26 Anion Gap 11 (10-20) 04/30/18 06:26 BUN 14 mg/dL (9-20) 04/30/18 06:26 Creatinine 0.8 mg/dL (0.8-1.5) 04/30/18 06:26 Est GFR ( Amer) > 60 04/30/18 06:26 Est GFR (Non-Af Amer) > 60 04/30/18 06:26 POC Glucose (mg/dL) 104 mg/dL (65-110) 04/29/18 04:33 Random Glucose 112 mg/dL (75-110) H 04/30/18 06:26 Calcium 9.0 mg/dl (8.6-10.4) 04/30/18 06:26 Phosphorus 3.8 mg/dL (2.5-4.5) 04/30/18 06:26 Magnesium 1.7 mg/dL (1.6-2.3) 04/30/18 06:26 Total Bilirubin 0.4 mg/dL (0.2-1.3) 04/30/18 06:26 AST 16 U/L (17-59) L D 04/30/18 06:26 ALT 24 U/L (21-72) 04/30/18 06:26 Alkaline Phosphatase 66 U/L (38-126) 04/30/18 06:26 Total Creatine Kinase 85 U/L (55-170) 04/29/18 19:43 CK-MB (Mass) 0.75 ng/mL (0.0-3.38) 04/29/18 19:43 Troponin I < 0.0120 ng/mL (0.00-0.120) 04/29/18 19:43 NT-Pro-B Natriuret Pep 1440 pg/mL (0-900) H 04/29/18 04:38 Total Protein 6.6 g/dL (6.3-8.3) 04/30/18 06:26 Albumin 3.5 g/dL (3.5-5.0) 04/30/18 06:26 Globulin 3.1 gm/dL (2.2-3.9) 04/30/18 06:26 Albumin/Globulin Ratio 1.1 (1.0-2.1) 04/30/18 06:26 Urine Color Yellow (YELLOW) 04/29/18 05:54 Urine Clarity Clear (Clear) 04/29/18 05:54 Urine pH 5.0 (5.0-8.0) 04/29/18 05:54 Ur Specific Green 1.018 (1.003-1.030) 04/29/18 05:54 Urine Protein Negative mg/dL (NEGATIVE) 04/29/18 05:54 Urine Glucose (UA) Normal mg/dL (Normal) 04/29/18 05:54 Urine Ketones Negative mg/dL (NEGATIVE) 04/29/18 05:54 Urine Blood Negative (NEGATIVE) 04/29/18 05:54 Urine Nitrate Negative (NEGATIVE) 04/29/18 05:54 Urine Bilirubin Negative (NEGATIVE) 04/29/18 05:54 Urine Urobilinogen 2.0 mg/dL (0.2-1.0) 04/29/18 05:54 Ur Leukocyte Esterase Neg [place]/uL (Negative) 04/29/18 05:54 Urine WBC (Auto) < 1 /hpf (0-5) 04/29/18 05:54 Urine RBC (Auto) 1 /hpf (0-3) 04/29/18 05:54 Ur Squamous Epith Cells < 1 /hpf (0-5) 04/29/18 05:54 Urine Opiates Screen Negative (NEGATIVE) 04/29/18 05:54 Urine Methadone Screen Negative (NEGATIVE) 04/29/18 05:54 Ur Barbiturates Screen Negative (NEGATIVE) 04/29/18 05:54 Ur Phencyclidine Scrn Negative (NEGATIVE) 04/29/18 05:54 Ur Amphetamines Screen Negative (NEGATIVE) 04/29/18 05:54 U Benzodiazepines Scrn Negative (NEGATIVE) 04/29/18 05:54 U Oth Cocaine Metabols Negative (NEGATIVE) 04/29/18 05:54 U Cannabinoids Screen Negative (NEGATIVE) 04/29/18 05:54 - Hospital Course Hospital Course: History and Physical: Patient is a 52 year old male who presents to the ED for evaluation of acute onset SOB. Pt reports he was awoken from his sleep with SOB, unrelieved with positional change. He reports no chest pain, palpitations, dizziness during event. Pt reports he called EMS to bring him in for further evaluation and treatment as SOB persisted, and pt has had recent CT surgery 1+ month ago. Pt and medical records reveal cardiac history significant for hospitalization for treatment of vtach requiring cardioversion w/ echo showing dilated cardiomyopathy w/ EF~15% and cath showing 99% stenosis of LAD; pt subsequently transferred to [facility] for CABG. Pt reports partial compliance with d/c med ications 2/2 finances, however does not recall which meds. Hospital Course: Discharge Exam - Head Exam Head Exam: ATRAUMATIC, NORMAL INSPECTION, NORMOCEPHALIC Discharge Plan - Discharge Medications Prescriptions: Amiodarone [Cordarone] 200 mg PO BID #60 tab Apixaban [Eliquis] 2.5 mg PO BID #60 tab Aspirin [Aspirin Chewable] 81 mg PO DAILY #30 chew Carvedilol [Coreg] 3.125 mg PO BID #60 tab Furosemide [Lasix] 40 mg PO DAILY #30 tab Potassium Chloride [Klor-Con 10] 10 meq PO DAILY #30 ter Rosuvastatin Calcium [Crestor] 20 mg PO HS #30 tab - Follow Up Plan Condition: FAIR Disposition: HOME/ ROUTINE
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
--- NOTE | 2018-04-30 17:37 | CARD ---
APPROVED REPORT Date of service: 04/30/2018 EXAM: LIMITED Two-dimensional and M-mode echocardiogram with Doppler and color Doppler. INDICATION Dyspnea Congestive Heart Failure Non STEMI Substance use 2D DIMENSIONS IVSd1.0 (0.7-1.1cm)Aortic Root (2D)2.3 (2.0-3.7cm) LVDd8.0 (3.9-5.9cm)PWd0.7 (0.7-1.1cm) LVDs7.1 (2.5-4.0cm)FS (%) 11.2 % LVEF (%)23.3 (>50%)LVEF (Knutson's)25 % M-Mode DIMENSIONS IVSd0.62 (0.7-1.1cm)LVDd7.95 (4.0-5.6cm) PWd0.66 (0.7-1.1cm)FS (%) 12 % LVDs7.01 (2.0-3.8cm)LVEF (%)25 (>50%) Mitral Valve MV E Hsuzdfdx52.5cm/sMV A Uptzketj54.0cm/sE/A ratio1.7 TDI E/Lateral E'0.0E/Medial E'0.0 LEFT VENTRICLE The Left Ventricle is severely dilated. There is normal left ventricular wall thickness. Left ventricle systolic function is severely impaired. The Ejection Fraction is 20-25%. There is severe global hypokinesis of the left ventricle. The left ventricular diastolic function is normal. Cannot rule out thrombus in left Ventricle. RIGHT VENTRICLE The right ventricle is moderately dilated. There is normal right ventricular wall thickness. Systolic function is severely reduced. There is a pacemaker lead in the right ventricle. ATRIA The left atrium is severely dilated. The right atrium is moderately dilated. The interatrial septum is intact with no evidence for an atrial septal defect. AORTIC VALVE The aortic valve is normal in structure. No aortic regurgitation is present. There is no aortic valvular stenosis. MITRAL VALVE The mitral valve is normal in structure. There is no evidence of mitral valve prolapse. There is no mitral valve stenosis. Mitral regurgitation is mild. TRICUSPID VALVE The tricuspid valve is normal in structure. There is mild tricuspid regurgitation. PULMONIC VALVE The pulmonic valve is not well visualized. There is mild to moderate pulmonic valvular regurgitation. GREAT VESSELS The aortic root is normal in size. PERICARDIAL EFFUSION There is no significant pericardial effusion. <Conclusion> Left ventricle systolic function is severely impaired. The Ejection Fraction is 20-25%. Severe dilated cardiomyopathy. Cannot rule out thrombus in left Ventricle. Suggest definity study if strongly suspected. No aortic regurgitation is present. Mitral regurgitation is mild. There is mild tricuspid regurgitation. There is mild to moderate pulmonic valvular regurgitation.
--- NOTE | 2018-04-30 17:49 | CP.PCM.PN ---
Subjective - Date & Time of Evaluation Date of Evaluation: 04/30/18 Time of Evaluation: 17:47 - Subjective Subjective: Medicine Progress Note - Dr Hamm's service Patient seen and examined at bedside. Per nursing no acute events overnight. Patient was admitted for dyspnea. Today he states that his shortness of breath has improved. He is ambulating and tolerating diet. Offers no other complaints at this time. Objective - Vital Signs/Intake and Output Vital Signs (last 24 hours): Temp Pulse Resp BP Pulse Ox 98.5 F 67 20 112/78 96 04/30/18 09:13 04/30/18 11:28 04/30/18 09:13 04/30/18 09:32 04/30/18 09:13 - Medications Medications: Current Medications Amiodarone HCl (Cordarone) 200 mg PO BID [facility] Last Admin: 04/30/18 17:31 Dose: 200 mg Apixaban (Eliquis) 2.5 mg PO BID [facility] Last Admin: 04/30/18 17:31 Dose: 2.5 mg Aspirin (Aspirin Chewable) 81 mg PO DAILY [facility] Last Admin: 04/30/18 09:32 Dose: 81 mg Carvedilol (Coreg) 3.125 mg PO BID [facility] Last Admin: 04/30/18 17:31 Dose: 3.125 mg Furosemide (Lasix) 20 mg PO DAILY [facility] Last Admin: 04/30/18 09:32 Dose: 20 mg Pantoprazole Sodium (Protonix Ec Tab) 40 mg PO DAILY [facility] Last Admin: 04/30/18 09:32 Dose: 40 mg Potassium Chloride (Klor-Con 10) 10 meq PO DAILY [facility] Last Admin: 04/30/18 09:32 Dose: 10 meq Rosuvastatin Calcium (Crestor) 20 mg PO HS [facility] Last Admin: 04/29/18 21:26 Dose: 20 mg - Labs Labs: 04/30/18 06:26 04/30/18 06:26 PT 12.2 SECONDS (9.7-12.2) 04/29/18 04:38 INR 1.1 04/29/18 04:38 APTT 33 SECONDS (21-34) 04/29/18 04:38 - Constitutional Appears: Non-toxic, No Acute Distress - Head Exam Head Exam: ATRAUMATIC, NORMAL INSPECTION, NORMOCEPHALIC - Eye Exam Eye Exam: EOMI, Normal appearance - ENT Exam ENT Exam: Mucous Membranes Moist - Respiratory Exam Respiratory Exam: Decreased Breath Sounds (Decreased breath sounds on the left), NORMAL BREATHING PATTERN. absent: Rhonchi, Wheezes - Cardiovascular Exam Cardiovascular Exam: REGULAR RHYTHM, +S1, +S2 - GI/Abdominal Exam GI & Abdominal Exam: Soft. absent: Guarding, Tenderness, Hyperactive Bowel Sounds - Extremities Exam Extremities Exam: Normal Inspection. absent: Calf Tenderness - Neurological Exam Neurological Exam: Alert, Awake, Oriented x3 - Psychiatric Exam Psychiatric exam: Normal Affect, Normal Mood - Skin Skin Exam: Dry, Normal Color, Warm Assessment and Plan - Assessment and Plan (Free Text) Assessment: Patient is a 52 year old male w/ hx of CHF, CAD requiring CABG admitted for evaluation of acute onset SOB Plan: Dyspnea -Stable, afebrile -Continue to monitor on telemetry -EKG: sinus rhythm w/ occasional PVCs, possible left atrial enlargement, nonspecific intraventricular block -Troponins negative x 3, pBNP: 1440 on admission -CXR showed severe cardiomegaly and moderate left pleural effusion History of CAD s/p CABG -Patient to continue ASA 81mg PO daily -Continue amiodarone 200mg PO BID, Lasix 20mg PO daily -Continue carvedilol 3.125mg PO BID, eliquis 2.5mg PO BID -Cardiology consult, Dr. Gentile, help appreciated Left Pleural effusion -CTA chest showed large partially loculated left pleural effusion extending into the left major fissure. Small right pleural effusion. Compressive atelectasis at left base. No PE (see full report -Pulmonology on consult, Dr Moore, help appreciated -For possible cardiothoracic evaluation Systolic CHF -Echo (03/04/18): EF~15% -Repeat echocardiogram - official read is pending -continue home meds -daily weights fluid restriction, I/Os Microcytic anemia -Iron studies ordered GI/DVT Ppx VTE: on eliquis GI: protonix Plan discussed with Dr Noris Mcmahan DO PGY-2
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
[2018-05-01 07:33] LABS: BASO # 0.1 K/uL (0.0-0.2); BASO % 0.9 % (0.0-2.0); EOS # 0.3 K/uL (0.0-0.7); EOS % 5.4 % (0.0-4.0); LYMPH # 1.4 K/uL (1.0-4.3); LYMPH % 23.5 % (20.0-40.0); MEAN CELL VOLUME 79.3 fL (80.0-94.0); MEAN CORPUSCULAR HEMOGLOBIN 26.6 pg (27.0-31.0); MEAN CORPUSCULAR HGB CONC 33.6 g/dL (33.0-37.0); MEAN PLATELET VOLUME 8.3 fL (7.2-11.7); MONO # 0.7 K/uL (0.0-0.8); NEUT # 3.4 K/uL (1.8-7.0); NEUT % 58.2 % (50.0-75.0); RBC 4.5 Mil/uL (4.40-5.90); RED CELL DISTRIBUTION WIDTH 15.8 % (11.5-14.5); WHITE BLOOD COUNT 5.8 K/uL (4.8-10.8)
[2018-05-01 07:50] LABS: IRON 42 ug/dL (49-181)
[2018-05-01 08:00] LABS: % IRON SATURATION 12 (20-55); TOTAL IRON BINDING CAPACITY 347 ug/dL (250-450)
[2018-05-01 08:03] LABS: ALBUMIN 3.8 g/dL (3.5-5.0); BLOOD UREA NITROGEN 13 mg/dL (9-20); CALCIUM 9.2 mg/dl (8.6-10.4); GFR NON-AFRICAN AMERICAN > 60
[2018-05-01 08:04] LABS: ALB/GLOB RATIO 1.1 (1.0-2.1); ALT/SGPT 18 U/L (21-72); AST/SGOT 20 U/L (17-59)
[2018-05-01 08:29] LABS: FERRITIN 85.1 ng/mL
[2018-05-01] MEDS: Pantoprazole 40 mg EC Tab PO SCH (09:23)
[2018-05-01] MEDS: Potassium Chloride 10 mEq ER Tab PO SCH (09:23)
--- NOTE | 2018-05-01 13:47 | CP.PCM.PN ---
Subjective - Date & Time of Evaluation Date of Evaluation: 05/01/18 Time of Evaluation: 13:47 - Subjective Subjective: Pulmonary Follow up, Covering Dr Moore The Patient was seen and examined at the bedside, Medical records reviewed, and management issues were discussed and formulated with the house staff. Events reviewed Objective - Vital Signs/Intake and Output Vital Signs (last 24 hours): Temp Pulse Resp BP Pulse Ox 98.1 F 62 20 120/83 97 05/01/18 07:00 05/01/18 12:05 05/01/18 07:00 05/01/18 09:23 05/01/18 07:00 Intake and Output: 05/01/18 05/01/18 06:59 18:59 Intake Total 120 Balance 120 - Medications Medications: Current Medications Amiodarone HCl (Cordarone) 200 mg PO BID [facility] Last Admin: 05/01/18 09:23 Dose: 200 mg Apixaban (Eliquis) 2.5 mg PO BID [facility] Last Admin: 05/01/18 09:23 Dose: 2.5 mg Aspirin (Aspirin Chewable) 81 mg PO DAILY [facility] Last Admin: 05/01/18 09:23 Dose: 81 mg Carvedilol (Coreg) 3.125 mg PO BID [facility] Last Admin: 05/01/18 09:23 Dose: 3.125 mg Furosemide (Lasix) 20 mg PO DAILY [facility] Last Admin: 05/01/18 09:23 Dose: 20 mg Pantoprazole Sodium (Protonix Ec Tab) 40 mg PO DAILY [facility] Last Admin: 05/01/18 09:23 Dose: 40 mg Potassium Chloride (Klor-Con 10) 10 meq PO DAILY [facility] Last Admin: 05/01/18 09:23 Dose: 10 meq Rosuvastatin Calcium (Crestor) 20 mg PO HS [facility] Last Admin: 04/30/18 21:59 Dose: 20 mg - Labs Labs: 05/01/18 07:22 05/01/18 07:22 PT 12.2 SECONDS (9.7-12.2) 04/29/18 04:38 INR 1.1 04/29/18 04:38 APTT 33 SECONDS (21-34) 04/29/18 04:38
--- NOTE | 2018-05-01 17:29 | CP.PCM.PN ---
Subjective - Date & Time of Evaluation Date of Evaluation: 05/01/18 Time of Evaluation: 17:27 - Subjective Subjective: Medicine Progress Note - Dr Hamm's service Patient seen and examined at bedside. Per nursing no acute events overnight. Patient is doing well, offers no complaints at this time. He is ambulating and tolerating diet. Objective - Vital Signs/Intake and Output Vital Signs (last 24 hours): Temp Pulse Resp BP Pulse Ox 98.1 F 62 20 120/83 97 05/01/18 07:00 05/01/18 12:05 05/01/18 07:00 05/01/18 09:23 05/01/18 07:00 Intake and Output: 05/01/18 05/01/18 06:59 18:59 Intake Total 120 Balance 120 - Medications Medications: Current Medications Amiodarone HCl (Cordarone) 200 mg PO BID [facility] Last Admin: 05/01/18 09:23 Dose: 200 mg Apixaban (Eliquis) 2.5 mg PO BID [facility] Last Admin: 05/01/18 09:23 Dose: 2.5 mg Aspirin (Aspirin Chewable) 81 mg PO DAILY [facility] Last Admin: 05/01/18 09:23 Dose: 81 mg Carvedilol (Coreg) 3.125 mg PO BID [facility] Last Admin: 05/01/18 09:23 Dose: 3.125 mg Furosemide (Lasix) 20 mg PO DAILY [facility] Last Admin: 05/01/18 09:23 Dose: 20 mg Pantoprazole Sodium (Protonix Ec Tab) 40 mg PO DAILY [facility] Last Admin: 05/01/18 09:23 Dose: 40 mg Potassium Chloride (Klor-Con 10) 10 meq PO DAILY [facility] Last Admin: 05/01/18 09:23 Dose: 10 meq Rosuvastatin Calcium (Crestor) 20 mg PO HS [facility] Last Admin: 04/30/18 21:59 Dose: 20 mg - Labs Labs: 05/01/18 07:22 05/01/18 07:22 PT 12.2 SECONDS (9.7-12.2) 04/29/18 04:38 INR 1.1 04/29/18 04:38 APTT 33 SECONDS (21-34) 04/29/18 04:38 - Constitutional Appears: Non-toxic, No Acute Distress - Head Exam Head Exam: ATRAUMATIC, NORMAL INSPECTION, NORMOCEPHALIC - Eye Exam Eye Exam: EOMI, Normal appearance - ENT Exam ENT Exam: Mucous Membranes Moist - Neck Exam Neck Exam: Full ROM - Respiratory Exam Respiratory Exam: Decreased Breath Sounds (on the left), NORMAL BREATHING PATTERN. absent: Rales, Rhonchi, Wheezes - Cardiovascular Exam Cardiovascular Exam: REGULAR RHYTHM, +S1, +S2 - GI/Abdominal Exam GI & Abdominal Exam: Soft. absent: Firm, Guarding, Rigid, Tenderness, Rebound - Extremities Exam Extremities Exam: Normal Inspection. absent: Calf Tenderness - Back Exam Back Exam: NORMAL INSPECTION - Neurological Exam Neurological Exam: Alert, Awake, Oriented x3 - Psychiatric Exam Psychiatric exam: Normal Affect, Normal Mood - Skin Skin Exam: Dry, Normal Color, Warm Assessment and Plan - Assessment and Plan (Free Text) Assessment: Patient is a 52 year old male w/ hx of CHF, CAD requiring CABG admitted for evaluation of acute onset SOB Plan: Dyspnea -Stable, afebrile -Continue to monitor on telemetry -EKG: sinus rhythm w/ occasional PVCs, possible left atrial enlargement, nonspecific intraventricular block -Troponins negative x 3, pBNP: 1440 on admission -CXR showed severe cardiomegaly and moderate left pleural effusion History of CAD s/p CABG -Patient to continue ASA 81mg PO daily -Continue amiodarone 200mg PO BID, Lasix 20mg PO daily -Continue carvedilol 3.125mg PO BID, eliquis 2.5mg PO BID -Cardiology consult, Dr. Gentile, help appreciated Left Pleural effusion -CTA chest showed large partially loculated left pleural effusion extending into the left major fissure. Small right pleural effusion. Compressive atelectasis at left base. No PE (see full report -Pulmonology on consult, Dr Moore, help appreciated -For possible cardiothoracic evaluation Systolic CHF -Echo (03/04/18): EF~15% -Repeat echocardiogram - LVEF 20-25%, LV function severely impaired, severe dilated cardiomyopathy (see full report) -continue home meds -Daily weights fluid restriction, I/Os Microcytic anemia -Continue to monitor GI/DVT Ppx VTE: on Eliquis GI: protonix Plan discussed with Dr Noris Mcmahan DO PGY-2
--- NOTE | 2018-05-01 20:01 | CARD ---
APPROVED REPORT Date of service: 04/29/2018 EKG Measurement Heart [id number] <Conclusion> Sinus rhythm with occasional premature ventricular complexes Possible Left atrial enlargement Left axis deviation Nonspecific intraventricular block Abnormal ECG
--- NOTE | 2018-05-01 22:19 | CP.PCM.PN ---
Subjective - Date & Time of Evaluation Date of Evaluation: 05/01/18 Time of Evaluation: 17:10 - Subjective Subjective: Patient with no new events Loculated pleural effusion Mgt as per pulmonary CAD s/p CABG Objective - Vital Signs/Intake and Output Vital Signs (last 24 hours): Temp Pulse Resp BP Pulse Ox 98.1 F 62 20 120/83 97 05/01/18 07:00 05/01/18 12:05 05/01/18 07:00 05/01/18 09:23 05/01/18 07:00 - Medications Medications: Current Medications Amiodarone HCl (Cordarone) 200 mg PO BID [facility] Last Admin: 05/01/18 18:58 Dose: 200 mg Apixaban (Eliquis) 2.5 mg PO BID [facility] Last Admin: 05/01/18 18:58 Dose: 2.5 mg Aspirin (Aspirin Chewable) 81 mg PO DAILY [facility] Last Admin: 05/01/18 09:23 Dose: 81 mg Carvedilol (Coreg) 3.125 mg PO BID [facility] Last Admin: 05/01/18 18:58 Dose: 3.125 mg Furosemide (Lasix) 20 mg PO DAILY [facility] Last Admin: 05/01/18 09:23 Dose: 20 mg Pantoprazole Sodium (Protonix Ec Tab) 40 mg PO DAILY [facility] Last Admin: 05/01/18 09:23 Dose: 40 mg Potassium Chloride (Klor-Con 10) 10 meq PO DAILY [facility] Last Admin: 05/01/18 09:23 Dose: 10 meq Rosuvastatin Calcium (Crestor) 20 mg PO HS [facility] Last Admin: 04/30/18 21:59 Dose: 20 mg - Labs Labs: 05/01/18 07:22 05/01/18 07:22 PT 12.2 SECONDS (9.7-12.2) 04/29/18 04:38 INR 1.1 04/29/18 04:38 APTT 33 SECONDS (21-34) 04/29/18 04:38
[2018-05-02 08:17] LABS: BASO % 0.8 % (0.0-2.0); EOS # 0.3 K/uL (0.0-0.7); EOS % 4.7 % (0.0-4.0); HEMOGLOBIN 13.1 g/dL (12.0-18.0); LYMPH # 1.4 K/uL (1.0-4.3); LYMPH % 23.1 % (20.0-40.0); MEAN CELL VOLUME 80.1 fL (80.0-94.0); MEAN CORPUSCULAR HEMOGLOBIN 26.1 pg (27.0-31.0); MEAN CORPUSCULAR HGB CONC 32.5 g/dL (33.0-37.0); MEAN PLATELET VOLUME 8.1 fL (7.2-11.7); MONO # 0.8 K/uL (0.0-0.8); MONO % 12.2 % (0.0-10.0); NEUT # 3.7 K/uL (1.8-7.0); NEUT % 59.2 % (50.0-75.0); NRBC % 0.2 % (0.0-2.0); RBC 5.03 Mil/uL (4.40-5.90); RED CELL DISTRIBUTION WIDTH 16.1 % (11.5-14.5); WHITE BLOOD COUNT 6.2 K/uL (4.8-10.8)
[2018-05-02 08:20] LABS: ALB/GLOB RATIO 1.2 (1.0-2.1); ALBUMIN 4.2 g/dL (3.5-5.0); ALT/SGPT 22 U/L (21-72); AST/SGOT 38 U/L (17-59); BLOOD UREA NITROGEN 13 mg/dL (9-20); CALCIUM 9.6 mg/dl (8.6-10.4); GFR NON-AFRICAN AMERICAN > 60
[2018-05-02] MEDS: Pantoprazole 40 mg EC Tab PO SCH (09:19)
[2018-05-02] MEDS: Potassium Chloride 10 mEq ER Tab PO SCH (09:19)
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
--- NOTE | 2018-05-02 14:04 | RAD ---
HISTORY: f/u effusion COMPARISON: Chest x-ray performed 04/29/18 TECHNIQUE: Chest, one view. FINDINGS: LUNGS: Persistent left-sided pleural effusion and consolidation. No definite pneumothorax. CARDIOVASCULAR: Median sternotomy wires with evidence of CABG. Cardiomegaly. OSSEOUS STRUCTURES: No acute osseous abnormality identified. VISUALIZED UPPER ABDOMEN: Unremarkable. OTHER FINDINGS: None. IMPRESSION: Persistent left-sided pleural effusion and consolidation. Cardiomegaly.
--- NOTE | 2018-05-02 15:26 | CP.PCM.PN ---
Subjective - Date & Time of Evaluation Date of Evaluation: 05/02/18 Time of Evaluation: 15:14 - Subjective Subjective: Medicine Progress Note for Dr. Hamm's service S/E at bedside. Reports mild sob but much improved from admission. Denies fevers, chills, chest pain, n/v, constipation or diarrhea, and dysuria. Objective - Vital Signs/Intake and Output Vital Signs (last 24 hours): Temp Pulse Resp BP Pulse Ox 98.1 F 59 L 20 122/76 97 05/02/18 07:00 05/02/18 07:10 05/02/18 07:00 05/02/18 09:19 05/02/18 07:00 Intake and Output: 05/02/18 05/02/18 06:59 18:59 Intake Total 120 Balance 120 - Medications Medications: Current Medications Amiodarone HCl (Cordarone) 200 mg PO BID [facility] Last Admin: 05/02/18 09:19 Dose: 200 mg Apixaban (Eliquis) 2.5 mg PO BID [facility] Last Admin: 05/02/18 09:19 Dose: 2.5 mg Aspirin (Aspirin Chewable) 81 mg PO DAILY [facility] Last Admin: 05/02/18 09:19 Dose: 81 mg Carvedilol (Coreg) 3.125 mg PO BID [facility] Last Admin: 05/02/18 09:19 Dose: 3.125 mg Furosemide (Lasix) 20 mg PO DAILY [facility] Last Admin: 05/02/18 09:19 Dose: 20 mg Pantoprazole Sodium (Protonix Ec Tab) 40 mg PO DAILY [facility] Last Admin: 05/02/18 09:19 Dose: 40 mg Potassium Chloride (Klor-Con 10) 10 meq PO DAILY [facility] Last Admin: 05/02/18 09:19 Dose: 10 meq Rosuvastatin Calcium (Crestor) 20 mg PO HS [facility] Last Admin: 05/01/18 22:20 Dose: 20 mg - Labs Labs: 05/02/18 07:53 05/02/18 07:53 PT 12.2 SECONDS (9.7-12.2) 04/29/18 04:38 INR 1.1 04/29/18 04:38 APTT 33 SECONDS (21-34) 04/29/18 04:38 - Constitutional Appears: Non-toxic, No Acute Distress - Head Exam Head Exam: NORMAL INSPECTION - Eye Exam Eye Exam: EOMI, Normal appearance. absent: Nystagmus - ENT Exam ENT Exam: Mucous Membranes Moist - Respiratory Exam Respiratory Exam: Decreased Breath Sounds, NORMAL BREATHING PATTERN. absent: Wheezes - Cardiovascular Exam Cardiovascular Exam: REGULAR RHYTHM, +S1, +S2 - GI/Abdominal Exam GI & Abdominal Exam: Soft, Normal Bowel Sounds. absent: Tenderness - Neurological Exam Neurological Exam: Alert, Awake, Oriented x3 - Psychiatric Exam Psychiatric exam: Normal Affect, Normal Mood - Skin Skin Exam: Dry, Intact, Normal Color Assessment and Plan - Assessment and Plan (Free Text) Assessment: Patient is a 52 year old male w/ hx of CHF, CAD requiring CABG admitted for evaluation of acute onset SOB. CT chest shows loculated pleural effusion. Plan: Loculated Pleural Effusion breathing improved on telemetry CXR showed severe cardiomegaly and moderate left pleural effusion CTA chest showed large partially loculated left pleural effusion extending into the left major fissure. Small right pleural effusion. Compressive atelectasis at left base. No PE Pulmonology Consulted: Dr. calixto- CT surgery consult input appreciated CT surgery Consulted: Dr. Horn- IR drainage appreciated IR consult: Dr. Rin medina appreciated AC held for AM INR pending in AM Hx of CAD w/ CABG Aspirin 81mg daily Lasix 20mg po daily Amiodarone 200mg po bid Carvedilol 3.125mg po daily Eliquis 2.5mg po bid, will be held for possible IR drainage in AM Cardiology Consulted: Dr. Yen medina appreciated Hx of systolic CHF Echo (03/04/18): EF~15% Echocardiogram (04/29/18): LVEF 20-25%, LV function severely impaired, severe dilated cardiomyopathy Lasix 20mg po daily Carvedilol 3.125mg po daily Daily weights fluid restriction strict I/Os GI/DVT Ppx VTE: Eliquis on hold in AM GI: protonix Plan discussed with Dr Noris Fletcher DO PGY-2
--- NOTE | 2018-05-02 18:27 | CP.PCM.PN ---
Subjective - Date & Time of Evaluation Date of Evaluation: 05/02/18 Time of Evaluation: 11:00 - Subjective Subjective: Patient seen and examined Alert, awake, No acute distress Denies fevers, chest pain, SOB, cough Patient is improving clinically Afebrile Discussed with Patient the need for chest tube placement \ surgery Consulted Physical Exam Oxygen Saturation 97% Room General: NAD Cardio: S1, S2 Resp: Decreased breath sounds Abd: Soft, Nontender A/P 1) Loculated Pleural Effusion -surgery consulted -Pigtail catheter by IR Objective - Vital Signs/Intake and Output Vital Signs (last 24 hours): Temp Pulse Resp BP Pulse Ox 97.9 F 64 20 113/73 97 05/02/18 15:02 05/02/18 16:00 05/02/18 15:02 05/02/18 15:02 05/02/18 15:02 Intake and Output: 05/02/18 05/02/18 06:59 18:59 Intake Total 120 400 Balance 120 400 - Medications Medications: Current Medications Amiodarone HCl (Cordarone) 200 mg PO BID [facility] Last Admin: 05/02/18 17:50 Dose: 200 mg Apixaban (Eliquis) 2.5 mg PO BID [facility] Last Admin: 05/02/18 17:49 Dose: 2.5 mg Aspirin (Aspirin Chewable) 81 mg PO DAILY [facility] Last Admin: 05/02/18 09:19 Dose: 81 mg Carvedilol (Coreg) 3.125 mg PO BID [facility] Last Admin: 05/02/18 17:50 Dose: 3.125 mg Furosemide (Lasix) 20 mg PO DAILY [facility] Last Admin: 05/02/18 09:19 Dose: 20 mg Pantoprazole Sodium (Protonix Ec Tab) 40 mg PO DAILY [facility] Last Admin: 05/02/18 09:19 Dose: 40 mg Potassium Chloride (Klor-Con 10) 10 meq PO DAILY [facility] Last Admin: 05/02/18 09:19 Dose: 10 meq Rosuvastatin Calcium (Crestor) 20 mg PO HS [facility] Last Admin: 05/01/18 22:20 Dose: 20 mg - Labs Labs: 05/02/18 07:53 05/02/18 07:53 PT 12.2 SECONDS (9.7-12.2) 04/29/18 04:38 INR 1.1 04/29/18 04:38 APTT 33 SECONDS (21-34) 04/29/18 04:38 Assessment and Plan (1) Pleural effusion Status: Acute
--- NOTE | 2018-05-02 23:37 | CP.PCM.PN ---
Subjective - Date & Time of Evaluation Date of Evaluation: 05/02/18 Time of Evaluation: 16:50 - Subjective Subjective: Patient seen and evaluated Pleural effusion s/p CABG Awaiting pleural fluid drainage Objective - Vital Signs/Intake and Output Vital Signs (last 24 hours): Temp Pulse Resp BP Pulse Ox 97.9 F 64 20 113/73 97 05/02/18 15:02 05/02/18 16:00 05/02/18 15:02 05/02/18 15:02 05/02/18 15:02 Intake and Output: 05/02/18 05/03/18 18:59 06:59 Intake Total 400 480 Balance 400 480 - Medications Medications: Current Medications Amiodarone HCl (Cordarone) 200 mg PO BID [facility] Last Admin: 05/02/18 17:50 Dose: 200 mg Apixaban (Eliquis) 2.5 mg PO BID [facility] Last Admin: 05/02/18 17:49 Dose: 2.5 mg Aspirin (Aspirin Chewable) 81 mg PO DAILY [facility] Last Admin: 05/02/18 09:19 Dose: 81 mg Carvedilol (Coreg) 3.125 mg PO BID [facility] Last Admin: 05/02/18 17:50 Dose: 3.125 mg Furosemide (Lasix) 20 mg PO DAILY [facility] Last Admin: 05/02/18 09:19 Dose: 20 mg Pantoprazole Sodium (Protonix Ec Tab) 40 mg PO DAILY [facility] Last Admin: 05/02/18 09:19 Dose: 40 mg Potassium Chloride (Klor-Con 10) 10 meq PO DAILY [facility] Last Admin: 05/02/18 09:19 Dose: 10 meq Rosuvastatin Calcium (Crestor) 20 mg PO HS [facility] Last Admin: 05/02/18 21:48 Dose: 20 mg - Labs Labs: 05/02/18 07:53 05/02/18 07:53 PT 12.2 SECONDS (9.7-12.2) 04/29/18 04:38 INR 1.1 04/29/18 04:38 APTT 33 SECONDS (21-34) 04/29/18 04:38
[2018-05-03 07:57] LABS: INR 1.1; PROTHROMBIN TIME 12.3 SECONDS (9.7-12.2)
[2018-05-03 08:05] LABS: BASO % 0.7 % (0.0-2.0); EOS # 0.3 K/uL (0.0-0.7); EOS % 4.6 % (0.0-4.0); HEMOGLOBIN 12.8 g/dL (12.0-18.0); LYMPH # 1.4 K/uL (1.0-4.3); LYMPH % 22.8 % (20.0-40.0); MEAN CORPUSCULAR HEMOGLOBIN 26.8 pg (27.0-31.0); MEAN CORPUSCULAR HGB CONC 33.5 g/dL (33.0-37.0); MONO # 0.9 K/uL (0.0-0.8); MONO % 13.9 % (0.0-10.0); NEUT # 3.7 K/uL (1.8-7.0); RBC 4.8 Mil/uL (4.40-5.90); RED CELL DISTRIBUTION WIDTH 16.3 % (11.5-14.5); WHITE BLOOD COUNT 6.3 K/uL (4.8-10.8)
[2018-05-03 08:13] LABS: ALB/GLOB RATIO 1.2 (1.0-2.1); ALBUMIN 4.2 g/dL (3.5-5.0); ALT/SGPT 20 U/L (21-72); AST/SGOT 26 U/L (17-59); BLOOD UREA NITROGEN 16 mg/dL (9-20); CALCIUM 9.6 mg/dl (8.6-10.4); GFR NON-AFRICAN AMERICAN > 60
[2018-05-03] MEDS: Potassium Chloride 10 mEq ER Tab PO SCH (09:08)
[2018-05-03] MEDS: Pantoprazole 40 mg EC Tab PO SCH (09:08)
--- NOTE | 2018-05-03 09:27 | CP.PCM.PN ---
Subjective - Date & Time of Evaluation Date of Evaluation: 05/03/18 Time of Evaluation: 09:25 - Subjective Subjective: SURGERY NOTE FOR DR. MCCLURE 52M seen and examined at bedside. Patient denies chest pain and denies shortness of breath. Doing well. Objective - Vital Signs/Intake and Output Vital Signs (last 24 hours): Temp Pulse Resp BP Pulse Ox 97.9 F 67 20 111/71 96 05/03/18 08:38 05/03/18 08:38 05/03/18 08:38 05/03/18 09:08 05/03/18 08:38 Intake and Output: 05/03/18 05/03/18 06:59 18:59 Intake Total 480 Balance 480 - Medications Medications: Current Medications Amiodarone HCl (Cordarone) 200 mg PO BID [facility] Last Admin: 05/03/18 09:08 Dose: 200 mg Apixaban (Eliquis) 2.5 mg PO BID [facility] Last Admin: 05/02/18 17:49 Dose: 2.5 mg Aspirin (Aspirin Chewable) 81 mg PO DAILY [facility] Last Admin: 05/03/18 09:08 Dose: 81 mg Carvedilol (Coreg) 3.125 mg PO BID [facility] Last Admin: 05/03/18 09:08 Dose: 3.125 mg Furosemide (Lasix) 20 mg PO DAILY [facility] Last Admin: 05/03/18 09:08 Dose: 20 mg Pantoprazole Sodium (Protonix Ec Tab) 40 mg PO DAILY [facility] Last Admin: 05/03/18 09:08 Dose: 40 mg Potassium Chloride (Klor-Con 10) 10 meq PO DAILY [facility] Last Admin: 05/03/18 09:08 Dose: 10 meq Rosuvastatin Calcium (Crestor) 20 mg PO HS [facility] Last Admin: 05/02/18 21:48 Dose: 20 mg - Labs Labs: 05/03/18 07:43 05/03/18 07:43 PT 12.3 SECONDS (9.7-12.2) H 05/03/18 07:43 INR 1.1 05/03/18 07:43 APTT 33 SECONDS (21-34) 04/29/18 04:38 - Constitutional Appears: Non-toxic, No Acute Distress - Eye Exam Eye Exam: EOMI, PERRL - Respiratory Exam Respiratory Exam: NORMAL BREATHING PATTERN - Cardiovascular Exam Cardiovascular Exam: REGULAR RHYTHM, +S1, +S2 - GI/Abdominal Exam GI & Abdominal Exam: Soft. absent: Distended, Firm, Guarding, Rigid, Ten derness, Rebound - Neurological Exam Neurological Exam: Alert, Awake - Skin Skin Exam: Dry, Intact, Normal Color, Warm Assessment and Plan - Assessment and Plan (Free Text) Assessment: 52M with recent CABG now with left pleural effusion Plan: - recommend IR drainage with pigtail Further recs discuss with Dr. Kory Henderson, PGY3
[2018-05-03] MEDS ORDERED: Lidocaine Hydrochloride 5 ML INJ ONE (10:06)
--- NOTE | 2018-05-03 10:46 | PCM.SURG1 ---
Surgeon's Initial Post Op Note - Surgeon's Notes Surgeon: Ignacio Rodriguez MD In Processing Instructor: NONE Type of Anesthesia: Local Pre-Operative Diagnosis: Left pleural effusion Operative Findings: US showed moderate left pleural effusion Post-Operative Diagnosis: Left pleural effusion Operation Performed: US guided left thoracentesis Specimen/Specimens Removed: 700 cc of eneida colored fluid Estimated Blood Loss: EBL {In ML}: 0 Blood Products Given: N/A Drains Used: No Drains Post-Op Condition: Fair Date of Surgery/Procedure: 05/03/18 Time of Surgery/Procedure: 10:45
--- NOTE | 2018-05-03 13:55 | CP.PCM.PN ---
Subjective - Date & Time of Evaluation Date of Evaluation: 05/03/18 Time of Evaluation: 13:51 - Subjective Subjective: Medicine Progress Note for Dr. Hamm's service S/E at bedside. Was curious about when IR procedure was to be done. Denies fevers, chills, chest pain, sob, n/v, constipation or diarrhea, and dysuria. Objective - Vital Signs/Intake and Output Vital Signs (last 24 hours): Temp Pulse Resp BP Pulse Ox 97.9 F 67 20 111/71 96 05/03/18 08:38 05/03/18 08:38 05/03/18 08:38 05/03/18 09:08 05/03/18 08:38 Intake and Output: 05/03/18 05/03/18 06:59 18:59 Intake Total 480 Balance 480 - Medications Medications: Current Medications Amiodarone HCl (Cordarone) 200 mg PO BID [facility] Last Admin: 05/03/18 09:08 Dose: 200 mg Apixaban (Eliquis) 2.5 mg PO BID [facility] Last Admin: 05/02/18 17:49 Dose: 2.5 mg Aspirin (Aspirin Chewable) 81 mg PO DAILY [facility] Last Admin: 05/03/18 09:08 Dose: 81 mg Carvedilol (Coreg) 3.125 mg PO BID [facility] Last Admin: 05/03/18 09:08 Dose: 3.125 mg Furosemide (Lasix) 20 mg PO DAILY [facility] Last Admin: 05/03/18 09:08 Dose: 20 mg Pantoprazole Sodium (Protonix Ec Tab) 40 mg PO DAILY [facility] Last Admin: 05/03/18 09:08 Dose: 40 mg Potassium Chloride (Klor-Con 10) 10 meq PO DAILY [facility] Last Admin: 05/03/18 09:08 Dose: 10 meq Rosuvastatin Calcium (Crestor) 20 mg PO HS [facility] Last Admin: 05/02/18 21:48 Dose: 20 mg - Labs Labs: 05/03/18 07:43 05/03/18 07:43 PT 12.3 SECONDS (9.7-12.2) H 05/03/18 07:43 INR 1.1 05/03/18 07:43 APTT 33 SECONDS (21-34) 04/29/18 04:38 - Constitutional Appears: Non-toxic, No Acute Distress - Head Exam Head Exam: NORMAL INSPECTION, NORMOCEPHALIC - Eye Exam Eye Exam: EOMI, Normal appearance. absent: Nystagmus, Scleral icterus - ENT Exam ENT Exam: Mucous Membranes Moist - Respiratory Exam Respiratory Exam: Decreased Breath Sounds, NORMAL BREATHING PATTERN. absent: Wheezes - Cardiovascular Exam Cardiovascular Exam: REGULAR RHYTHM, +S1, +S2 - GI/Abdominal Exam GI & Abdominal Exam: Soft, Normal Bowel Sounds. absent: Distended, Firm, Guarding, Rigid, Tenderness - Neurological Exam Neurological Exam: Awake, Oriented x3 - Psychiatric Exam Psychiatric exam: Normal Affect, Normal Mood - Skin Skin Exam: Dry, Intact, Normal Color Assessment and Plan - Assessment and Plan (Free Text) Assessment: Patient is a 52 year old male w/ hx of CHF, CAD requiring CABG admitted for evaluation of acute onset SOB. CT chest shows loculated pleural effusion. Plan: Loculated Pleural Effusion breathing improved on telemetry CXR showed severe cardiomegaly and moderate left pleural effusion CTA chest showed large partially loculated left pleural effusion extending into the left major fissure. Small right pleural effusion. Compressive atelectasis at left base. No PE 3-26 s/p IR drainage of pleural fluid- 700 cc of eneida fluid; pending cytology and fluid studies Repeat CXR pending Pulmonology Consulted: Dr. calixto- CT surgery consult input appreciated CT surgery Consulted: Dr. Horn- IR drainage appreciated IR consult: Dr. Rin medina appreciated AC restarted Hx of CAD w/ CABG Aspirin 81mg daily Lasix 20mg po daily Amiodarone 200mg po bid Carvedilol 3.125mg po daily Eliquis 2.5mg po bid Cardiology Consulted: Dr. Yen medina appreciated Hx of systolic CHF Echo (03/04/18): EF~15% Echocardiogram (04/29/18): LVEF 20-25%, LV function severely impaired, severe dilated cardiomyopathy Lasix 20mg po daily Carvedilol 3.125mg po daily Daily weights fluid restriction strict I/Os GI/DVT Ppx VTE: Eliquis 2.5mg po bid GI: protonix Plan discussed with Dr Noris Fletcher DO PGY-1
--- NOTE | 2018-05-03 16:16 | RAD ---
Date of service: 05/03/2018 HISTORY: s/p left CT guided thoracentesis COMPARISON: 04/29/2018. FINDINGS: LUNGS: No active pulmonary disease. Re-expansion of left lower lobe. PLEURA: Marked decrease left pleural effusion. No visible pneumothorax. CARDIOVASCULAR: No radiographic findings to suggest acute or significant cardiovascular disease. Incidental Finding(s): Postoperative changes related to sternotomy. Cardiomegaly. OSSEOUS STRUCTURES: No significant abnormalities. VISUALIZED UPPER ABDOMEN: Normal. OTHER FINDINGS: None. IMPRESSION: No adverse findings/no pneumothorax following left thoracentesis. No active pulmonary disease. No cardiac abnormalities.
--- NOTE | 2018-05-03 16:56 | CP.PCM.PN ---
Subjective - Date & Time of Evaluation Date of Evaluation: 05/03/18 Time of Evaluation: 15:00 - Subjective Subjective: Patient seen and examined Alert, awake, No acute distress Patient is resting comfortably Denies fevers, chest pain, SOB, cough Afebrile Patient tolerated Pigtail Insertion this morning. 700cc of Gabby color fluid was removed Patient is clinically stable from Pulmonology Physical Exam Oxygen Saturation 96% Room General: NAD Cardio: S1, S2 Resp: Decreased breath sounds Abd: Soft, Nontender A/P 1) Loculated Pleural Effusion -IR drained 700cc Gabby colored fluid -fluid analysis -f/u chest x ray Objective - Vital Signs/Intake and Output Vital Signs (last 24 hours): Temp Pulse Resp BP Pulse Ox 97.7 F 67 20 107/74 98 05/03/18 15:00 05/03/18 15:00 05/03/18 15:00 05/03/18 15:00 05/03/18 15:00 Intake and Output: 05/03/18 05/03/18 06:59 18:59 Intake Total 480 Balance 480 - Medications Medications: Current Medications Amiodarone HCl (Cordarone) 200 mg PO BID [facility] Last Admin: 05/03/18 09:08 Dose: 200 mg Apixaban (Eliquis) 2.5 mg PO BID [facility] Last Admin: 05/02/18 17:49 Dose: 2.5 mg Aspirin (Aspirin Chewable) 81 mg PO DAILY [facility] Last Admin: 05/03/18 09:08 Dose: 81 mg Carvedilol (Coreg) 3.125 mg PO BID [facility] Last Admin: 05/03/18 09:08 Dose: 3.125 mg Furosemide (Lasix) 20 mg PO DAILY [facility] Last Admin: 05/03/18 09:08 Dose: 20 mg Pantoprazole Sodium (Protonix Ec Tab) 40 mg PO DAILY [facility] Last Admin: 05/03/18 09:08 Dose: 40 mg Potassium Chloride (Klor-Con 10) 10 meq PO DAILY [facility] Last Admin: 05/03/18 09:08 Dose: 10 meq Rosuvastatin Calcium (Crestor) 20 mg PO HS [facility] Last Admin: 05/02/18 21:48 Dose: 20 mg - Labs Labs: 05/03/18 07:43 05/03/18 07:43 PT 12.3 SECONDS (9.7-12.2) H 05/03/18 07:43 INR 1.1 05/03/18 07:43 APTT 33 SECONDS (21-34) 04/29/18 04:38 Assessment and Plan (1) Pleural effusion Status: Acute
[2018-05-03 19:52] LABS: BODY FLUID TYPE PLEURAL/THORACENTESI
[2018-05-03 21:54] LABS: BF GROSS APPEARANCE SL CLOUDY (CLEAR)
[2018-05-03 21:55] LABS: BODY FLUID MONO/MACROPHAGE 13 % (0-0); BODY FLUID TOTAL COUNT 100 (0-0)
--- NOTE | 2018-05-04 07:44 | CP.PCM.PN ---
Subjective - Date & Time of Evaluation Date of Evaluation: 05/03/18 Time of Evaluation: 19:40 - Subjective Subjective: Patient s/p Pleural fluid drainage Feels better Improved breathing and no chest pain No cardiac events Objective - Vital Signs/Intake and Output Vital Signs (last 24 hours): Temp Pulse Resp BP Pulse Ox 97.9 F 65 20 100/67 98 05/03/18 23:35 05/03/18 23:35 05/03/18 23:35 05/03/18 23:35 05/03/18 23:35 Intake and Output: 05/04/18 05/04/18 06:59 18:59 Intake Total 520 Balance 520 - Medications Medications: Current Medications Acetaminophen (Tylenol 325mg Tab) 650 mg PO Q6 PRN PRN Reason: Pain, moderate (4-7) Last Admin: 05/03/18 19:42 Dose: 650 mg Amiodarone HCl (Cordarone) 200 mg PO BID [facility] Last Admin: 05/03/18 17:30 Dose: 200 mg Apixaban (Eliquis) 2.5 mg PO BID [facility] Last Admin: 05/03/18 17:33 Dose: 2.5 mg Aspirin (Aspirin Chewable) 81 mg PO DAILY [facility] Last Admin: 05/03/18 09:08 Dose: 81 mg Carvedilol (Coreg) 3.125 mg PO BID [facility] Last Admin: 05/03/18 17:33 Dose: 3.125 mg Furosemide (Lasix) 20 mg PO DAILY [facility] Last Admin: 05/03/18 09:08 Dose: 20 mg Pantoprazole Sodium (Protonix Ec Tab) 40 mg PO DAILY [facility] Last Admin: 05/03/18 09:08 Dose: 40 mg Potassium Chloride (Klor-Con 10) 10 meq PO DAILY [facility] Last Admin: 05/03/18 09:08 Dose: 10 meq Rosuvastatin Calcium (Crestor) 20 mg PO HS [facility] Last Admin: 05/03/18 21:31 Dose: 20 mg - Labs Labs: 05/03/18 07:43 05/03/18 07:43 PT 12.3 SECONDS (9.7-12.2) H 05/03/18 07:43 INR 1.1 05/03/18 07:43 APTT 33 SECONDS (21-34) 04/29/18 04:38
[2018-05-04 08:14] VITALS: PULSE 64; TEMP 98.1; O2SAT 96
[2018-05-04] MEDS: Potassium Chloride 10 mEq ER Tab PO SCH (09:50)
[2018-05-04] MEDS: Pantoprazole 40 mg EC Tab PO SCH (09:51)
[2018-05-04 09:53] VITALS: BP 121/77
--- NOTE | 2018-05-04 10:50 | US ---
PROCEDURE: Date of procedure: 05/03/2018 Procedure: 1. Ultrasound-guided left thoracentesis, CPT 32516 Medications: 6cc 1% Lidocaine HISTORY: Left pleural effusion, shortness of breath TECHNIQUE: Following informed consent ,the Patients' left chest was marked. Procedure time-out was called, and the patient was placed in the sitting position and limited ultrasound showed a large left effusion. The patient's left back was prepped and draped in the usual sterile fashion. After the skin was anesthetized with lidocaine, a drainage catheter was advanced under ultrasound guidance into the pleural space. Ultrasound-guided thoracentesis was performed. A total of 800 cubic centimeters of straw-colored fluid removed without complication. A Xeroform dressing was applied. IMPRESSION: Ultrasound guided left thoracentesis. There were no immediate complications.
--- NOTE | 2018-05-04 13:24 | CP.PCM.DIS ---
Provider - Provider Date of Admission: 04/29/18 07:26 Attending physician: Kevin Hamm Jr, MD Consults: 04/29/18 09:38 Cardiology Consult Routine Comment: Consulting Provider: Nando Gentile Consulting Physician: Nando Gentile Reason for Consult: SOB; 1 month s/p CABG 04/30/18 15:49 Pulmonology Consult Routine Comment: Consulting Provider: Isma Moore Consulting Physician: Isma Moore Reason for Consult: Pleural effusion 05/02/18 11:26 Physician Consult Routine Comment: Consulting Provider: Cooper Horn Consulting Physician: Cooper Horn Reason for Consult: loculated pleural effusion on CT; recent CABG 05/02/18 14:20 Physician Consult Routine Comment: Consulting Provider: Ignacio Rodriguez Consulting Physician: Ignacio Rodriguez Reason for Consult: CT guided drainage of loculated pleural effusion Additional Comments: As per Dr. Horn , CT surgery, CT guided pigtail for drainage of loculated pleural effusion with IR Due to recent thoracotomy adesions very likely Time Spent in preparation of Discharge (in minutes): 30 Hospital Course - Lab Results Lab Results: Most Recent Lab Values WBC 6.3 K/uL (4.8-10.8) 05/03/18 07:43 RBC 4.80 Mil/uL (4.40-5.90) 05/03/18 07:43 Hgb 12.8 g/dL (12.0-18.0) 05/03/18 07:43 Hct 38.4 % (35.0-51.0) 05/03/18 07:43 MCV 80.0 fL (80.0-94.0) 05/03/18 07:43 MCH 26.8 pg (27.0-31.0) L 05/03/18 07:43 MCHC 33.5 g/dL (33.0-37.0) 05/03/18 07:43 RDW 16.3 % (11.5-14.5) H 05/03/18 07:43 Plt Count 396 K/uL (130-400) 05/03/18 07:43 MPV 8.0 fL (7.2-11.7) 05/03/18 07:43 Neut % (Auto) 58.0 % (50.0-75.0) 05/03/18 07:43 Lymph % (Auto) 22.8 % (20.0-40.0) 05/03/18 07:43 [place] % (Auto) 13.9 % (0.0-10.0) H 05/03/18 07:43 Eos % (Auto) 4.6 % (0.0-4.0) H 05/03/18 07:43 Baso % (Auto) 0.7 % (0.0-2.0) 05/03/18 07:43 Neut # (Auto) 3.7 K/uL (1.8-7.0) 05/03/18 07:43 Lymph # (Auto) 1.4 K/uL (1.0-4.3) 05/03/18 07:43 [place] # (Auto) 0.9 K/uL (0.0-0.8) H 05/03/18 07:43 Eos # (Auto) 0.3 K/uL (0.0-0.7) 05/03/18 07:43 Baso # (Auto) 0.0 K/uL (0.0-0.2) 05/03/18 07:43 Retic Count 1.9 % (0.5-1.5) H 05/01/18 07:22 PT 12.3 SECONDS (9.7-12.2) H 05/03/18 07:43 INR 1.1 05/03/18 07:43 APTT 33 SECONDS (21-34) 04/29/18 04:38 D-Dimer, Quantitative 330 ng/mlDDU (0-243) H 04/29/18 04:38 Sodium 137 mmol/L (132-148) 05/03/18 07:43 Potassium 4.0 mmol/L (3.6-5.2) 05/03/18 07:43 Chloride 102 mmol/L (98-107) 05/03/18 07:43 Carbon Dioxide 27 mmol/L (22-30) 05/03/18 07:43 Anion Gap 11 (10-20) 05/03/18 07:43 BUN 16 mg/dL (9-20) 05/03/18 07:43 Creatinine 1.1 mg/dL (0.8-1.5) 05/03/18 07:43 Est GFR ( Amer) > 60 05/03/18 07:43 Est GFR (Non-Af Amer) > 60 05/03/18 07:43 POC Glucose (mg/dL) 104 mg/dL (65-110) 04/29/18 04:33 Random Glucose 111 mg/dL (75-110) H 05/03/18 07:43 Calcium 9.6 mg/dl (8.6-10.4) 05/03/18 07:43 Phosphorus 3.8 mg/dL (2.5-4.5) 04/30/18 06:26 Magnesium 1.7 mg/dL (1.6-2.3) 04/30/18 06:26 Iron 42 ug/dL (49-181) L 05/01/18 07:22 TIBC 347 ug/dL (250-450) 05/01/18 07:22 % Saturation 12 (20-55) L 05/01/18 07:22 Ferritin 85.1 ng/mL 05/01/18 07:22 Total Bilirubin 0.4 mg/dL (0.2-1.3) 05/03/18 07:43 AST 26 U/L (17-59) 05/03/18 07:43 ALT 20 U/L (21-72) L 05/03/18 07:43 Alkaline Phosphatase 80 U/L (38-126) 05/03/18 07:43 Total Creatine Kinase 85 U/L (55-170) 04/29/18 19:43 CK-MB (Mass) 0.75 ng/mL (0.0-3.38) 04/29/18 19:43 Troponin I < 0.0120 ng/mL (0.00-0.120) 04/29/18 19:43 NT-Pro-B Natriuret Pep 1440 pg/mL (0-900) H 04/29/18 04:38 Total Protein 7.6 g/dL (6.3-8.3) 05/03/18 07:43 Albumin 4.2 g/dL (3.5-5.0) 05/03/18 07:43 Globulin 3.4 gm/dL (2.2-3.9) 05/03/18 07:43 Albumin/Globulin Ratio 1.2 (1.0-2.1) 05/03/18 07:43 Vitamin B12 324 pg/mL (239-931) 05/01/18 07:22 Folate 11.0 ng/mL 05/01/18 07:22 Urine Color Yellow (YELLOW) 04/29/18 05:54 Urine Clarity Clear (Clear) 04/29/18 05:54 Urine pH 5.0 (5.0-8.0) 04/29/18 05:54 Ur Specific Elkins 1.018 (1.003-1.030) 04/29/18 05:54 Urine Protein Negative mg/dL (NEGATIVE) 04/29/18 05:54 Urine Glucose (UA) Normal mg/dL (Normal) 04/29/18 05:54 Urine Ketones Negative mg/dL (NEGATIVE) 04/29/18 05:54 Urine Blood Negative (NEGATIVE) 04/29/18 05:54 Urine Nitrate Negative (NEGATIVE) 04/29/18 05:54 Urine Bilirubin Negative (NEGATIVE) 04/29/18 05:54 Urine Urobilinogen 2.0 mg/dL (0.2-1.0) 04/29/18 05:54 Ur Leukocyte Esterase Neg Mora/uL (Negative) 04/29/18 05:54 Urine WBC (Auto) < 1 /hpf (0-5) 04/29/18 05:54 Urine RBC (Auto) 1 /hpf (0-3) 04/29/18 05:54 Ur Squamous Epith Cells < 1 /hpf (0-5) 04/29/18 05:54 Fluid Source Pleural/thoracentesi 05/03/18 19:51 Fluid Appearance Sl cloudy (CLEAR) 05/03/18 19:51 Fluid WBC 556.0 /mm3 (0.0-300.0) H 05/03/18 19:51 Fluid RBC 9458.0 /mm3 (0.0-0.0) H 05/03/18 19:51 Fluid Tot Cell Count 100 (0-0) H 05/03/18 19:51 Fluid Neutrophils 3.0 % (0-0) H 05/03/18 19:51 Fluid Lymphocytes 84.0 % (0-0) H 05/03/18 19:51 Fld Monocyte/Macrophag 13 % (0-0) H 05/03/18 19:51 Fluid Comment 05/03/18 19:51 Urine Opiates Screen Negative (NEGATIVE) 04/29/18 05:54 Urine Methadone Screen Negative (NEGATIVE) 04/29/18 05:54 Ur Barbiturates Screen Negative (NEGATIVE) 04/29/18 05:54 Ur Phencyclidine Scrn Negative (NEGATIVE) 04/29/18 05:54 Ur Amphetamines Screen Negative (NEGATIVE) 04/29/18 05:54 U Benzodiazepines Scrn Negative (NEGATIVE) 04/29/18 05:54 U Oth Cocaine Metabols Negative (NEGATIVE) 04/29/18 05:54 U Cannabinoids Screen Negative (NEGATIVE) 04/29/18 05:54 - Hospital Course Hospital Course: Upon Admission Patient is a 52 year old male who presents to the ED for evaluation of acute onset SOB. Pt reports he was awoken from his sleep with SOB, unrelieved with positional change. He reports no chest pain, palpitations, dizziness during event. Pt reports he called EMS to bring him in for further evaluation and treatment as SOB persisted, and pt has had recent CT surgery 1+ month ago. Pt and medical records reveal cardiac history significant for hospitalization for treatment of vtach requiring cardioversion w/ echo showing dilated cardiomyopathy w/ EF~15% and cath showing 99% stenosis of LAD; pt subsequently transferred to [facility] for CABG. Pt reports partial compliance with d/c medications 2/2 finances, however does not recall which meds. Hospital Course Patient was admitted for acute sob. On CT patient was found to have loculated pleural effusion. Patient was diuresed with medications. CT surgery was consulted and due to recent CABG, they recommended IR for drainage. Patient had drainage of pleural effusion with IR and 700cc eneida fluid was removed. Patient was discharged with meds and followup instructions. Discharge Plan Patient is cleared for discharge home Please continue medications as prescribed Please follow up with Dr Gentile within 2-3 days Please follow up with Dr Hamm within 1 week If symptoms worsen, return to the emergency room Discharge Exam - Head Exam Head Exam: NORMAL INSPECTION, NORMOCEPHALIC - Eye Exam Eye Exam: EOMI, Normal appearance. absent: Nystagmus, Scleral icterus - ENT Exam ENT Exam: Mucous Membranes Moist - Respiratory Exam Respiratory Exam: NORMAL BREATHING PATTERN - Cardiovascular Exam Cardiovascular Exam: REGULAR RHYTHM, +S1, +S2 - GI/Abdominal Exam GI & Abdominal Exam: Normal Bowel Sounds, Soft. absent: Diminished Bowel Sounds, Distended, Tenderness - Extremities Exam Extremities exam: normal inspection - Neurological Exam Neurological exam: Alert, Oriented x3 - Psychiatric Exam Psychiatric exam: Normal Affect, Normal Mood - Skin Skin Exam: Dry, Intact, Normal Color Discharge Plan - Discharge Medications Prescriptions: Amiodarone [Cordarone] 200 mg PO BID #60 tab Apixaban [Eliquis] 2.5 mg PO BID #60 tablet Aspirin 81 mg PO DAILY #30 tab.chew Carvedilol [Coreg] 3.125 mg PO BID #60 tab Furosemide [Lasix] 20 mg PO DAILY #30 tablet Pantoprazole [Protonix EC Tab] 40 mg PO DAILY #30 ect Potassium Chloride [Klor-Con 10] 10 meq PO DAILY #30 ter Rosuvastatin Calcium 20 mg PO HS #30 tablet - Follow Up Plan Condition: FAIR Disposition: HOME/ ROUTINE Instructions: Heart Healthy Diet, Heart Failure, Adult (DC), Pleural Effusion (DC), Apixaban, Amiodarone, Carvedilol, Furosemide, Pantoprazole, Potassium Chloride, Rosuvastatin, Thoracentesis (DC), Heart Failure (DC), Heart Failure (GEN), Pacemaker (DC), Pacemaker (GEN), Pulmonary Edema (DC), Pulmonary Edema (GEN), Ascites (DC), Ascites (GEN) Additional Instructions: Patient is cleared for discharge home Please continue medications as prescribed Please follow up with Dr Gentile within 2-3 days Please follow up with Dr Hamm within 1 week If symptoms worsen, return to the emergency room Referrals: Nando Gentile MD [Staff Provider] - Kevin Hamm Jr., MD [Medical Doctor] -
--- NOTE | 2018-05-04 14:16 | PCM.HF ---
Heart Failure Core Measure - Heart Failure Ejection Fraction: Less Than 40 % RADHA Inhibitor Prescribed: No Contraindication/Reason for not providing: BP running low 100,s Beta-Gladys Prescribed: Carvedilol Angiotensin II Receptor Gladys Prescribed: No Contraindication/Reason for not providing: bp low AnticoagulationTherapy for Atrial Fibrillation/Atrialflutter: Yes Aldosterone Antagonist Prescribed: No Contraindication/Reason for not providing: risk of hyperkalemia Hydralazine Nitrate Prescribed: No Contraindication/Reason for not providing: on amidorone Implantable Cardioverter Defibrillator Therapy: No Contraindication/Reason for not providing: for AICD Cardiac Resynchronization Therapy Prescribed: No Contraindication/Reason for not providing: plan for AICD - Follow up Will be discharged to: Home Follow Up Date (must be within 7 days from discharge): 05/09/18 Follow Up Time: 15:00
== END 2018-05-04 12:46 | disposition home or self-care (01) | DRG 127 ==
LOC: C.ER 04:10 → C.9E 07:26 → C.6T 15:38
PROVIDERS: ADMIT Internal Medicine; ATTEND Internal Medicine
PROC: 0W9B3ZZ Drainage of Left Pleural Cavity, Percutaneous Approach (ICD-10-PCS; principal; 2018-05-03)
PROC: BB4BZZZ Ultrasonography of Pleura (ICD-10-PCS; 2018-05-03)
DX: I50.20 Unspecified systolic (congestive) heart failure (principal); J91.8 Pleural effusion in other conditions classified elsewhere; Z95.1 Presence of aortocoronary bypass graft; I25.10 Atherosclerotic heart disease of native coronary artery without angina pectoris; I42.0 Dilated cardiomyopathy; I25.5 Ischemic cardiomyopathy; K21.9 Gastro-esophageal reflux disease without esophagitis; M47.9 Spondylosis, unspecified; Z87.442 Personal history of urinary calculi; Z87.891 Personal history of nicotine dependence; Z79.01 Long term (current) use of anticoagulants; Z79.82 Long term (current) use of aspirin; Z79.899 Other long term (current) drug therapy

== ENCOUNTER 2018-07-06 08:05 | Observation (INO) | payer OTHER ==
[2018-07-06 08:06] VITALS: BMI 27.4
[2018-07-06 09:29] LABS: BASO # 0.1 K/uL (0.0-0.2); BASO % 0.9 % (0.0-2.0); EOS # 0.1 K/uL (0.0-0.7); EOS % 2.2 % (0.0-4.0); HEMOGLOBIN 12.9 g/dL (12.0-18.0); LYMPH # 1.3 K/uL (1.0-4.3); LYMPH % 19.8 % (20.0-40.0); MEAN CELL VOLUME 78.8 fL (80.0-94.0); MEAN CORPUSCULAR HEMOGLOBIN 27.1 pg (27.0-31.0); MEAN CORPUSCULAR HGB CONC 34.4 g/dL (33.0-37.0); MEAN PLATELET VOLUME 7.8 fL (7.2-11.7); MONO # 0.6 K/uL (0.0-0.8); MONO % 9.4 % (0.0-10.0); NEUT # 4.4 K/uL (1.8-7.0); NEUT % 67.7 % (50.0-75.0); RBC 4.76 Mil/uL (4.40-5.90); RED CELL DISTRIBUTION WIDTH 18.9 % (11.5-14.5); WHITE BLOOD COUNT 6.6 K/uL (4.8-10.8)
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
[2018-07-06 10:14] LABS: ALB/GLOB RATIO 1.1 (1.0-2.1); ALBUMIN 4.2 g/dL (3.5-5.0); ALT/SGPT 43 U/L (21-72); AST/SGOT 32 U/L (17-59); BLOOD UREA NITROGEN 17 mg/dL (9-20); CALCIUM 9.2 mg/dl (8.6-10.4); GFR NON-AFRICAN AMERICAN > 60
--- NOTE | 2018-07-06 11:04 | RAD ---
Chest x-ray two views HISTORY: Chest pain. Comparison: 05/03/2018 Findings: Status post median sternotomy and CABG. Patchy increased markings in the left mid to lower lung zone with blunted left costophrenic angle. Multiple overlying external battery packs and wiring. Mild venous congestion. Right hilar prominence. Degenerative changes in the spine and shoulders. Impression: Status post median sternotomy and CABG. Patchy increased markings in the left mid to lower lung zone with blunted left costophrenic angle. Multiple overlying external battery packs and wiring. Mild venous congestion. Right hilar prominence.
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
[2018-07-06 16:18] LABS: HDL CHOLESTEROL 48 mg/dL (30-70)
[2018-07-06 16:24] LABS: B-TYPE NATRIURETIC PEPTIDE 222 pg/mL (0-900)
[2018-07-06 16:29] LABS: LDL CHOLESTEROL 104 mg/dL (0-129)
[2018-07-06 16:31] VITALS: RESP 20; O2SAT 97
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
[2018-07-07 02:22] VITALS: TEMP 97.8
[2018-07-07 03:07] LABS: CK-MB 1.18 ng/mL (0.0-3.38)
[2018-07-07 04:20] LABS: ALB/GLOB RATIO 1.2 (1.0-2.1); ALT/SGPT 33 U/L (21-72); AST/SGOT 27 U/L (17-59); BLOOD UREA NITROGEN 15 mg/dL (9-20); CALCIUM 9.2 mg/dl (8.6-10.4); GFR NON-AFRICAN AMERICAN > 60
[2018-07-07 06:45] LABS: BASO % 0.7 % (0.0-2.0); EOS # 0.2 K/uL (0.0-0.7); HEMOGLOBIN 13.3 g/dL (12.0-18.0); LYMPH # 1.6 K/uL (1.0-4.3); MEAN CELL VOLUME 78.9 fL (80.0-94.0); MEAN CORPUSCULAR HEMOGLOBIN 26.6 pg (27.0-31.0); MEAN CORPUSCULAR HGB CONC 33.7 g/dL (33.0-37.0); MEAN PLATELET VOLUME 7.8 fL (7.2-11.7); MONO # 0.6 K/uL (0.0-0.8); MONO % 11.7 % (0.0-10.0); NEUT # 2.9 K/uL (1.8-7.0); NEUT % 54.6 % (50.0-75.0); NRBC % 0.1 % (0.0-2.0); RBC 5.02 Mil/uL (4.40-5.90); RED CELL DISTRIBUTION WIDTH 18.8 % (11.5-14.5); WHITE BLOOD COUNT 5.3 K/uL (4.8-10.8)
[2018-07-07 08:00] VITALS: PULSE 52
--- NOTE | 2018-07-07 08:41 | CP.PCM.PN ---
Subjective - Date & Time of Evaluation Date of Evaluation: 07/07/18 Time of Evaluation: 07:00 - Subjective Subjective: Progress note for Dr. Hamm. Patient seen and evaluated at bedside. States chest pain has resolved. No complaints. Denies chest pain, SOB, nausea, vomiting, fever, chills, diaphoresis, dizziness. Objective - Vital Signs/Intake and Output Vital Signs (last 24 hours): Temp Pulse Resp BP Pulse Ox 97.8 F 52 L 20 117/71 97 07/07/18 07:10 07/07/18 07:59 07/07/18 07:10 07/07/18 07:10 07/07/18 07:10 - Medications Medications: Current Medications Amiodarone HCl (Cordarone) 200 mg PO BID [facility] Last Admin: 07/06/18 18:02 Dose: 200 mg Apixaban (Eliquis) 2.5 mg PO BID [facility] Last Admin: 07/06/18 18:02 Dose: 2.5 mg Aspirin (Aspirin Chewable) 81 mg PO DAILY [facility] Furosemide (Lasix) 20 mg PO DAILY [facility] Pantoprazole Sodium (Protonix Ec Tab) 40 mg PO DAILY [facility] Rosuvastatin Calcium (Crestor) 20 mg PO HS [facility] Last Admin: 07/06/18 21:28 Dose: 20 mg - Labs Labs: 07/07/18 06:19 07/07/18 02:29 - Constitutional Appears: Well, No Acute Distress - Head Exam Head Exam: ATRAUMATIC, NORMOCEPHALIC - Eye Exam Eye Exam: EOMI, Normal appearance, PERRL - ENT Exam ENT Exam: Mucous Membranes Moist - Neck Exam Neck Exam: Full ROM, Normal Inspection - Respiratory Exam Respiratory Exam: Clear to Ausculation Bilateral, NORMAL BREATHING PATTERN. absent: Chest Wall Tenderness, Rales, Rhonchi, Wheezes - Cardiovascular Exam Cardiovascular Exam: REGULAR RHYTHM, +S1, +S2 Additional comments: sternotomy scar - GI/Abdominal Exam GI & Abdominal Exam: Soft, Normal Bowel Sounds. absent: Firm, Guarding, Rigid, Tenderness, Rebound - Extremities Exam Extremities Exam: Full ROM, Normal Inspection. absent: Pedal Edema, Tenderness - Neurological Exam Neurological Exam: Alert, Awake, CN II-XII Intact, Oriented x3 Neuro motor strength exam: Left Upper Extremity: 5, Right Upper Extremity: 5, Left Lower Extremity: 5, Right Lower Extremity: 5 - Psychiatric Exam Psychiatric exam: Normal Affect, Normal Mood - Skin Skin Exam: Dry, Normal Color, Warm Assessment and Plan - Assessment and Plan (Free Text) Plan: 52 y o male with PMhx CAD, s/p open heart surgery x2 and cardiac bypass (most recently 3 mos ago at [facility] [place] presents with c/o worsening R-sided chest pain since last evening. Cardiology (Dr. Gentile) and CT Surgery (Dr. Cummins) consulted. Plan: Chest pain, r/o ACS -Hx recent cardiac surgery 3 mos ago -Admit to tele -MARIA EUGENIA neg x1, repeat x2 pending -EKG on admission shows sinus bradycardia, L atrial enlargement, L axis deviation -Dr. Gentile, Cardiology consulted, recs appreciated -BNP pending -A1c, lipid panel, thyroid studies pending -Echo pending -HHD Bradycardia -Home med Carvedilol held on admission, cont to monitor Hx loculated pleural effusion on prior admission, recent cardiac surgery -CT chest ordered -CXR: s/p median sternotomy and CABG, patchy increased marking in L to mid lower lung zone with blunted L costophrenic angle, multiple overlying external battery packs and wiring, mild venous congestion, R hilar prominence -CT Surgery, Dr. Cummins, consulted, recs appreciated Hx CAD/Lifevest -Amiodarone bid -Eliquis bid -Lasix 20 mg daily Hx HLD -Lipid panel pending -C/w home med Crestor PPX: -GI: Protonix -DVT: Eliquis, SCD
[2018-07-07] MEDS ORDERED: Pantoprazole 40 mg EC Tab PO SCH (10:00)
[2018-07-07] MEDS ORDERED: Perflutren Lipid Microsphere 1.5 ML SUS IV ONE (10:06)
--- NOTE | 2018-07-07 10:39 | CP.PCM.DIS ---
Provider - Provider Date of Admission: 07/06/18 11:53 Attending physician: Kevin Hamm Jr, MD Consults: 07/06/18 11:56 Cardiology Consult Stat Comment: Consulting Provider: Nando Gentile Consulting Physician: Nando Gentile Reason for Consult: chest wall pain 07/06/18 12:58 Physician Consult Routine Comment: Consulting Provider: Cooper Horn Consulting Physician: Cooper Horn Reason for Consult: chest wall pain after CABG Time Spent in preparation of Discharge (in minutes): 35 Diagnosis - Discharge Diagnosis (1) Musculoskeletal chest pain Status: Acute (2) CHF (congestive heart failure) Status: Acute Hospital Course - Lab Results Lab Results: Most Recent Lab Values WBC 5.3 K/uL (4.8-10.8) 07/07/18 06:19 RBC 5.02 Mil/uL (4.40-5.90) 07/07/18 06:19 Hgb 13.3 g/dL (12.0-18.0) 07/07/18 06:19 Hct 39.6 % (35.0-51.0) 07/07/18 06:19 MCV 78.9 fL (80.0-94.0) L 07/07/18 06:19 MCH 26.6 pg (27.0-31.0) L 07/07/18 06:19 MCHC 33.7 g/dL (33.0-37.0) 07/07/18 06:19 RDW 18.8 % (11.5-14.5) H 07/07/18 06:19 Plt Count 333 K/uL (130-400) 07/07/18 06:19 MPV 7.8 fL (7.2-11.7) 07/07/18 06:19 Neut % (Auto) 54.6 % (50.0-75.0) 07/07/18 06:19 Lymph % (Auto) 30.0 % (20.0-40.0) 07/07/18 06:19 Pitkin % (Auto) 11.7 % (0.0-10.0) H 07/07/18 06:19 Eos % (Auto) 3.0 % (0.0-4.0) 07/07/18 06:19 Baso % (Auto) 0.7 % (0.0-2.0) 07/07/18 06:19 Neut # (Auto) 2.9 K/uL (1.8-7.0) 07/07/18 06:19 Lymph # (Auto) 1.6 K/uL (1.0-4.3) 07/07/18 06:19 Pitkin # (Auto) 0.6 K/uL (0.0-0.8) 07/07/18 06:19 Eos # (Auto) 0.2 K/uL (0.0-0.7) 07/07/18 06:19 Baso # (Auto) 0.0 K/uL (0.0-0.2) 07/07/18 06:19 Sodium 137 mmol/L (132-148) 07/07/18 02:29 Potassium 3.6 mmol/L (3.6-5.2) 07/07/18 02:29 Chloride 102 mmol/L (98-107) 07/07/18 02:29 Carbon Dioxide 28 mmol/L (22-30) 07/07/18 02:29 Anion Gap 11 (10-20) 07/07/18 02:29 BUN 15 mg/dL (9-20) 07/07/18 02:29 Creatinine 1.1 mg/dL (0.8-1.5) 07/07/18 02:29 Est GFR ( Amer) > 60 07/07/18 02:29 Est GFR (Non-Af Amer) > 60 07/07/18 02:29 Random Glucose 108 mg/dL (75-110) 07/07/18 02:29 Hemoglobin A1c 6.1 % (4.2-6.5) 07/06/18 15:57 Calcium 9.2 mg/dl (8.6-10.4) 07/07/18 02:29 Phosphorus 3.1 mg/dL (2.5-4.5) 07/07/18 02:29 Magnesium 1.8 mg/dL (1.6-2.3) 07/07/18 02:29 Total Bilirubin 0.4 mg/dL (0.2-1.3) 07/07/18 02:29 AST 27 U/L (17-59) 07/07/18 02:29 ALT 33 U/L (21-72) 07/07/18 02:29 Alkaline Phosphatase 60 U/L (38-126) 07/07/18 02:29 Total Creatine Kinase 117 U/L (55-170) 07/07/18 02:29 CK-MB (Mass) 1.18 ng/mL (0.0-3.38) 07/07/18 02:29 Troponin I < 0.0120 ng/mL (0.00-0.120) 07/07/18 02:29 NT-Pro-B Natriuret Pep 222 pg/mL (0-900) 07/06/18 15:57 Total Protein 7.6 g/dL (6.3-8.3) 07/07/18 02:29 Albumin 4.0 g/dL (3.5-5.0) 07/07/18 02:29 Globulin 3.5 gm/dL (2.2-3.9) 07/07/18 02:29 Albumin/Globulin Ratio 1.2 (1.0-2.1) 07/07/18 02:29 Triglycerides 99 mg/dL (0-149) 07/06/18 15:57 Cholesterol 168 mg/dL (0-199) 07/06/18 15:57 LDL Cholesterol Direct 104 mg/dL (0-129) 07/06/18 15:57 HDL Cholesterol 48 mg/dL (30-70) 07/06/18 15:57 TSH 3rd Generation 1.28 mIU/L (0.46-4.68) 07/07/18 02:29 - Hospital Course Hospital Course: On admission: 52 y o male with PMhx CAD, s/p open heart surgery x2 and cardiac bypass [place] [facility] [place] presents with c/o worsening R-sided chest pain since last evening. States that the pain started at rest, denies any inciting factors, states it did not worsen after eating yesterday. Did not take ASA or any other medications for pain at home at symptom onset. Describes pain as sharp, rates pain 7/10, non-radiating to carotids or axilla/extremities. States he feels like something is sticking in my chest. Reports associated shortness of breath that worsens when he takes in a deep breath. Denies headache, fever, chills, n/v/d/c, abd pain, urinary complaints, LE edema/claudication, or difficulty with ambulation. Per chart review, pt was recently admitted to [facility] in April 2018 and was found to have loculated pleural effusion, underwent diuresis, and had effusion drained by IR. Pt reports compliance with home medications. Hospitalization: Patient with Hx recent cardiac surgery 3 mos ago admitted for Chest pain, r/o ACS. EKG on admission shows sinus bradycardia, L atrial enlargement, L axis deviation. Troponin negative x3. ProBNP was 222. CXR: s/p median sternotomy and CABG, patchy increased marking in L to mid lower lung zone with blunted L costophrenic angle, multiple overlying external battery packs and wiring, mild venous congestion, R hilar prominence. CT Surgery, Dr. Cummins, consulted, no surgical intervention indicated at this time. Dr. Gentile was consulted who recommended to continue present management. CT chest was unremarkable. Prelim echo was read by Dr. Hamm. At the time of discharge, patient's chest pain resolved. Likely musckuloskeltal pain due to healing of sternotomy incision. discharge instructions: Patient is stable for discharge as per Dr. Hamm. Patient will recieve the following prescriptions: Crestor 20mg once at nighttime Protonix 40mg once daily Lasix 20mg once daily Coreg 3.125mg twice a day (do not take if your systolic blood pressure is less than 90 and you have symptoms like lightheadedness/dizziness) Aspirin 81mg once daily Eliquis 2.5mg twice daily Amiodarone 200mg PO twice daily Digoxin 0.125mg daily Spironolactone 25mg daily (do not take if your systolic blood pressure is less than 90 and you have symptoms like lightheadedness/dizziness) Lisinopril 5mg once daily You must see Dr. Hamm in the office next week. Call to make an appointment. You must see Dr. Gentile within one month. Return to the emergency room for new or worsening symptoms. Discharge Exam - Head Exam Head Exam: ATRAUMATIC, NORMOCEPHALIC - Additional Findings Additional findings: - Constitutional Appears: Well, No Acute Distress - Head Exam Head Exam: ATRAUMATIC, NORMOCEPHALIC - Eye Exam Eye Exam: EOMI, Normal appearance, PERRL - ENT Exam ENT Exam: Mucous Membranes Moist - Neck Exam Neck Exam: Full ROM, Normal Inspection - Respiratory Exam Respiratory Exam: Clear to Ausculation Bilateral, NORMAL BREATHING PATTERN. absent: Chest Wall Tenderness, Rales, Rhonchi, Wheezes - Cardiovascular Exam Cardiovascular Exam: REGULAR RHYTHM, +S1, +S2 Additional comments: sternotomy scar - GI/Abdominal Exam GI & Abdominal Exam: Soft, Normal Bowel Sounds. absent: Firm, Guarding, Rigid, Tenderness, Rebound - Extremities Exam Extremities Exam: Full ROM, Normal Inspection. absent: Pedal Edema, Tenderness - Neurological Exam Neurological Exam: Alert, Awake, CN II-XII Intact, Oriented x3 Neuro motor strength exam: Left Upper Extremity: 5, Right Upper Extremity: 5, Left Lower Extremity: 5, Right Lower Extremity: 5 - Psychiatric Exam Psychiatric exam: Normal Affect, Normal Mood - Skin Skin Exam: Dry, Normal Color, Warm Discharge Plan - Discharge Medications Prescriptions: Amiodarone [Cordarone] 200 mg PO BID #60 tab Apixaban [Eliquis] 2.5 mg PO BID #60 tablet Aspirin 81 mg PO DAILY #30 tab.chew Carvedilol [Coreg] 3.125 mg PO BID #60 tab Digoxin 0.125 mg PO DAILY #30 tab Furosemide [Lasix] 20 mg PO DAILY #30 tablet Lisinopril [Prinivil] 5 mg PO DAILY #30 tablet Pantoprazole [Protonix EC Tab] 40 mg PO DAILY #30 ect Rosuvastatin Calcium 20 mg PO HS #30 tablet Spironolactone 25 mg PO DAILY #30 tablet - Follow Up Plan Condition: GUARDED Disposition: HOME/ ROUTINE Instructions: Heart Healthy Diet, Chest Pain That Is Not Caused by the Heart (DC), Heart Failure, Adult (DC), Chest Pain (DC), Apixaban Additional Instructions: Patient is stable for discharge as per Dr. Hamm. Patient will recieve the following prescriptions: Crestor 20mg once at nighttime Protonix 40mg once daily Lasix 20mg once daily Coreg 3.125mg twice a day (do not take if your systolic blood pressure is less than 90 and you have symptoms like lightheadedness/dizziness) Aspirin 81mg once daily Eliquis 2.5mg twice daily Amiodarone 200mg PO twice daily Digoxin 0.125mg daily Spironolactone 25mg daily (do not take if your systolic blood pressure is less than 90 and you have symptoms like lightheadedness/dizziness) Lisinopril 5mg once daily You must see Dr. Hamm in the office next week. Call to make an appointment. You must see Dr. Gentile within one month. Return to the emergency room for new or worsening symptoms. El paciente est estable para el dulce maria segn el Dr. Hamm. El paciente recibir las siguientes prescripciones: Crestor 20 mg karina vez en la noche Protonix 40 mg karina vez al da Lasix 20 mg karina vez al da Coreg 3.125 mg dos veces al da (no lo tome si hernandez presin arterial sistlica es inferior a 90 y tiene sntomas catrachito mareo / vrtigo) Aspirina 81 mg karina vez al da. Eliquis 2,5 mg dos veces al da. Amiodarone 200mg PO dos veces al da Digoxina 0.125 mg al da Spironolactone 25 mg al da (no lo tome si hernandez presin arterial sistlica es inferior a 90 y tiene sntomas catrachito mareo / vrtigo) Lisinopril 5 mg karina vez al da Debes sahara al Dr. Hamm en la oficina la prxima semana. Llame para hacer karina akash. Debes sahara al Dr. Gentile en la oficina pool mez. Regrese a la duane de emergencias para los sntomas nuevos o que empeoran. Referrals: Kevin Hamm Jr., MD [Medical Doctor] -
[2018-07-07 10:46] VITALS: BP 117/70
--- NOTE | 2018-07-07 12:31 | CT ---
Date of service: 07/06/2018 PROCEDURE: CT Chest without contrast HISTORY: Chest pain, shortness of breath. COMPARISON: 04/29/2018. CT pulmonary angiogram. Summary of findings on the comparison examination: Large partially loculated left pleural effusion in treating into the left major fissure. Small right pleural effusion.Compressive atelectasis at the left base. No pulmonary embolus. TECHNIQUE: Contiguous axial images were obtained through the chest without intravenous contrast enhancement. Sagittal and coronal reconstructions were performed. Radiation dose: Total exam DLP = 420.16 mGy-cm. This CT exam was performed using one or more of the following dose reduction techniques: Automated exposure control, adjustment of the mA and/or kV according to patient size, and/or use of iterative reconstruction technique. FINDINGS: LUNGS: Clear lungs. Visualized airway clear MEDIASTINUM: Unremarkable thoracic aorta. No aneurysm. Cardiomegaly. Calcification about the wall of the left ventricle. This is an incidental finding. No evidence of acute, significant cardiovascular disease. Main pulmonary artery unremarkable. No vascular congestion. No lymphadenopathy. No aortic atherosclerotic calcification. PLEURA: Resolution of bilateral pleural effusions. BONES: No fracture. No destructive lesion. Stable midline sternotomy changes. UPPER ABDOMEN: Gastric distension filled with fluid and debris. OTHER FINDINGS: None. IMPRESSION: Unremarkable non-contrast enhanced CT of the chest. No active pulmonary disease. Resolution of previously identified pleural effusions and compressive atelectasis.
--- NOTE | 2018-07-07 16:11 | CARD ---
APPROVED REPORT Date of service: 07/07/2018 EXAM: LIMITED Two-dimensional and M-mode echocardiogram with Doppler, color Doppler with contrast. INDICATION Dyspnea Chest Pain CAD, CABG X2 2D DIMENSIONS IVSd1.1 (0.7-1.1cm)LVDd7.7 (3.9-5.9cm) PWd0.9 (0.7-1.1cm)LA [id number] (18-58mL) LVDs6.8 (2.5-4.0cm)FS (%) 11.3 % LVEF (%)23.7 (>50%)LVEF (Knutson's)27.03 % IVC0.00 cm M-Mode DIMENSIONS RVDd2.21 (2.1-3.2cm)Left Atrium (MM)4.52 (2.5-4.0cm) IVSd1.25 (0.7-1.1cm)Aortic Root2.71 (2.2-3.7cm) LVDd7.49 (4.0-5.6cm)Aortic Cusp Exc.2.06 (1.5-2.0cm) PWd1.00 (0.7-1.1cm)FS (%) 9 % LVDs6.82 (2.0-3.8cm)LVEF (%)19 (>50%) Mitral Valve MV E Nxxmzuyp33.2cm/sMV A Sepuqecn27.1cm/sE/A ratio1.3 CJVS713.55 cm/s TDI Lateral E' Peak V11.32cm/sMedial E' Peak V2.74cm/sE/Lateral E'6.2 E/Medial E'25.6 Tricuspid Valve TR Peak [id number]/sTR Peak Gr.[id number] LEFT VENTRICLE The Left Ventricle is moderately to severely dilated. There is borderline concentric left ventricular hypertrophy. Left ventricle systolic function is severely impaired. The Ejection Fraction is - 20 - 25% Anterior wall hypokinesis / akinesis compatible with coronary heart disease. Anterior infarct of unknown age. Infero-apical hypokinesis. Paradoxical septal motion. Transmitral Doppler flow pattern is Grade II-pseudonormal filling dynamics. No left ventricle thrombus noted with IV contrast using Definity. RIGHT VENTRICLE The right ventricle is mildly dilated. Systolic function is mildly to moderately reduced. ATRIA The left atrium is moderately dilated. The right atrium is mildly dilated. AORTIC VALVE The aortic valve is normal in structure. No aortic regurgitation is present. There is no aortic valvular stenosis. MITRAL VALVE The mitral valve is normal in structure. Mitral regurgitation is mild. TRICUSPID VALVE The tricuspid valve is normal in structure. There is mild tricuspid regurgitation. There is no pulmonary hypertension. PULMONIC VALVE The pulmonary valve is normal in structure. There is mild pulmonic valvular regurgitation. GREAT VESSELS The aortic root is normal in size. The IVC is normal in size and collapses >50% with inspiration. PERICARDIAL EFFUSION There is no pericardial effusion. <Conclusion> The Left Ventricle is moderately to severely dilated. Left ventricle systolic function is severely impaired. The Ejection Fraction is - 20 - 25% Anterior wall hypokinesis / akinesis compatible with coronary heart disease. Anterior infarct of unknown age. Infero-apical hypokinesis. Paradoxical septal motion. Transmitral Doppler flow pattern is Grade II-pseudonormal filling dynamics. No left ventricle thrombus noted with IV contrast using Definity. The right ventricle is mildly dilated. Systolic function is mildly to moderately reduced. Mild fermin, tricuspid and pulmonicl regurgitation. There is no pericardial effusion.
== END 2018-07-07 15:29 | disposition home or self-care (01) ==
LOC: C.ER 08:05 → C.9E 11:53 → C.6T 13:53
PROVIDERS: ADMIT Internal Medicine; ATTEND Internal Medicine
DX: R07.89 Other chest pain (principal); I11.0 Hypertensive heart disease with heart failure; I25.10 Atherosclerotic heart disease of native coronary artery without angina pectoris; I25.5 Ischemic cardiomyopathy; I50.9 Heart failure, unspecified; K21.9 Gastro-esophageal reflux disease without esophagitis; F10.10 Alcohol abuse, uncomplicated; Z87.442 Personal history of urinary calculi; Z87.891 Personal history of nicotine dependence; Z95.1 Presence of aortocoronary bypass graft
CPT/HCPCS: 36415; 71046; 71250; 80053; 80061; 83036; 83735; 83880; 84100; 84439; 84443; 84484; 85025; 93306; 99285; G0378